=== PATIENT | female | born 1945 | race Caucasian/White ===

== ENCOUNTER 2020-07-01 13:22 | Outpatient (REF) | payer MEDICARE, OTHER, SELFPAY | END 2020-07-01 13:23 | disposition home or self-care (01) | LOC: HO.LAB 13:22 | PROVIDERS: Visit Provider Internal Medicine | DX: Z20.828 Contact with and (suspected) exposure to other viral communicable diseases (principal) | CPT/HCPCS: C9803; U0003 ==

== ENCOUNTER 2023-08-21 13:54 | Inpatient (IN) | payer MEDICARE, OTHER, SELFPAY ==
--- NOTE | ~2023-08-21 | CT_ITS ---
EXAMINATION: CT ANGIOGRAM HEAD CT ANGIOGRAM NECK CLINICAL INFORMATION: Reason for Exam stroke, right sided facial droop, slurred speech COMPARISON: None. TECHNIQUE: Test bolus sequences followed by intravenous administration 70 mL of Omnipaque 350. Helical imaging was performed in the axial plane from the aortic arch to the skull vertex. Delayed postcontrast imaging of the head was also performed. The data was processed at the electronic technologist's workstation for generation of MIP sequences. Angled MIPs and volume rendered reformatted images were also generated at an offline 3D workstation. Stenoses are assessed in accordance with Chen et al. Quantification of Carotid Stenosis on CT Angiography. AJR 2006. 27(1):13-19. [address] CT examination was performed using dose optimization techniques as appropriate, variously including the following: *Automated exposure control *Adjustment of mA and/or kV according to patient size (this includes techniques or standardized protocols for targeted exams where dose is matched to indication/reason for exam; i.e. extremities or head) *Use of iterative reconstruction technique DLP: 2015 mGy-cm FINDINGS: CT HEAD: Mild to moderate global cerebral volume loss. Patchy and confluent low density in the subcortical and periventricular white matter, deep mosley nuclei and external capsules is nonspecific but most suggestive of severe chronic microangiopathy. Please note the extent of white matter disease limits assessment for superimposed acute white matter process, including acute ischemia. 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 Age indeterminate possibly chronic infarct in the right posterior temporo-occipital lobe. Otherwise, no acute territorial loss of mosley-white differentiation. No territorial loss of mosley-white differentiation. No acute intracranial hemorrhage or extra-axial fluid collection. No mass lesion, significant mass effect, or herniation pattern. No pathologic intra-axial enhancement or regional oligemia. Lens replacements. Paranasal sinuses and mastoid air cells are well aerated. Osseous structures are intact. Bilateral TMJ osteoarthrosis. CTA HEAD: Please note venous contamination limits assessment particularly of the distal intracranial arterial vasculature. No hemodynamically significant stenosis or occlusion in the anterior or posterior circulation. Trace calcific plaque along the bilateral carotid siphons without associated stenosis. No aneurysms and no high flow vascular malformations. Timing of the contrast bolus allows assessment of the major dural venous sinuses, which all opacify normally CTA NECK: Classic 3 vessel branching pattern of the aortic arch. Origins of the great vessels are widely patent. The common carotid arteries are widely patent. Trace partially calcified atherosclerotic disease at the left carotid bifurcation was normal right carotid bifurcation. The internal carotid arteries are widely patent. Retropharyngeal course along the bilateral common carotid, right internal and left external carotid arteries. The right vertebral artery is dominant. The right vertebral artery origin and extracranial segment of the right vertebral artery are widely patent. 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 CT NECK: Prominant periapical lucency associated with the buccal roots of the right maxillary second premolar. Carious right maxillary canine tooth with ventral displacement of the tooth root beyond the anterior bony maxilla into the overlying premaxillary soft tissues; correlation with dental examination is advised. Additional scattered postroot canal changes and small periapical/periodontal lucencies. Bilateral torus mandibulari. Coarsely calcified bilateral palatine tonsilloliths. Medialization of the right aryepiglottic fold with prominence of the right piriform sinus and paramedian location of the posterior right true vocal cord with prominence of the right laryngeal ventricle. Diminutive thyroid gland. Multilevel cervical spondylosis. Diffuse osseous demineralization. Intraosseous hemangioma in the T1 and possibly of the T2 vertebral bodies. CT/CT angio head neck IMPRESSION: 1. Extensive white matter disease is nonspecific and may reflect sequela of severe chronic microangiopathy, which limits assessment for superimposed acute white matter process, including acute ischemia, which would be better evaluated on MRI. No acute intracranial hemorrhage. 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 Age indeterminate possibly chronic infarct in the right posterior temporo-occipital lobe. 2. Age-indeterminate occlusive of the nondominant left vertebral artery from its origin throughout the reconstituted V2 segment. 3. No acute arterial occlusion or hemodynamically significant stenosis within the cerebral vasculature. 4. Carious right maxillary canine tooth with ventral displacement of the tooth root beyond the anterior bony maxilla into the overlying premaxillary soft tissues; correlation with dental examination is advised. 5. Findings described above thickened correlate for right vocal cord paresis/paralysis. This critical result was discussed with Dr. Boucher at 5:36 PM on 08/21/2023 and it was ascertained that the content and urgency of the report was understood at the time of direct communication.
--- NOTE | ~2023-08-21 | MR_ITS ---
EXAMINATION: MR BRAIN WITHOUT CONTRAST CLINICAL INFORMATION: Facial droop COMPARISON: CTA 08/21/2023 TECHNIQUE: MRI of the brain was obtained using routine sequences without contrast. FINDINGS: Acute infarct in the left garcia radiata and additional smaller acute infarct in the right posterior garcia radiata. No significant mass effect or reperfusion hemorrhage. Moderate generalized parenchymal volume loss. Extensive patchy and confluent T2 FLAIR hyperintense foci in the subcortical and periventricular white matter, deep mosley nuclei, external capsules, anterior temporal lobes, and brainstem are and may reflect sequela of advanced chronic microangiopathy or small vessel vasculopathy, such as CADASIL given external capsule and anterior temporal lobe involvement. Advanced demyelinating disease or other white matter processes not excluded and can be correlated clinically. Gliosis along the callosal septal interface of the splenium of the corpus callosum. Chronic left PICA territory infarct and the left cerebellum and additional chronic lacunar infarct in the right cerebellum. No extra axial fluid collection, mass lesion, mass effect, or herniation pattern. Normal intracranial arterial and dural venous sinus flow voids. Normal appearance of the midline structures. Lens replacements. Trace ethmoid air cell mucosal thickening. 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 Small Tornwaldt cyst. Partially cervical spondylosis with advanced facet arthropathy MR/MR head/brain wo con IMPRESSION: 1. Acute infarct in the left garcia radiata and additional smaller acute infarct in the right posterior garcia radiata. No significant mass effect or reperfusion hemorrhage. 2. Moderate focal cerebral volume loss and extensive white matter signal abnormalities throughout the supratentorial and infratentorial compartments, which may reflect sequela of advanced chronic microangiopathy or small vessel vasculitis/vasculopathy, such as CADASIL given external capsule and anterior temporal lobe involvement. Advanced demyelinating disease or other white matter processes not excluded. 3. Chronic left PICA territory infarct and the left cerebellum and additional chronic lacunar infarct in the right cerebellum.
--- NOTE | 2023-08-21 13:57 | ED_ITS ---
HPI - General Adult General Chief complaint: Stroke Stated complaint: Slurring speech/facial droop Time Seen by Provider: 08/21/23 14:07 Related Data Home Medications Medication Instructions Recorded Confirmed bimatoprost 0.01 % eye drops 1 drp ophthalmic (eye) QPM 08/21/23 08/21/23 (Mahesh) diltiazem HCl 120 mg 120 mg PO DAILY 08/21/23 08/21/23 capsule,extended release 24 hr escitalopram oxalate 20 mg tablet 20 mg PO DAILY 08/21/23 08/21/23 levothyroxine 75 mcg tablet 75 mcg PO DAILY 08/21/23 08/21/23 lorazepam 0.5 mg tablet 0.5 mg PO DAILY PRN Anxiety 08/21/23 08/21/23 simvastatin 20 mg tablet 20 mg PO BEDTIME 08/21/23 08/21/23 vibegron 75 mg tablet (Gemtesa) 75 mg PO DAILY 08/21/23 08/21/23 Allergies Allergy/AdvReac Type Severity Reaction Status Date / Time No Known Allergies Allergy Verified 08/21/23 13:59 [facility] Past Medical History Medical History (Updated 08/21/23 @ 18:56 by Harvinder Perkins DO) Hypertension Social History Social History Advance Directives: No Advance Directives Information Provided: Yes Physical Exam ED Vital Signs: Vital Signs - 24 hr 08/21/23 13:59 08/21/23 14:52 08/21/23 15:11 Temperature 98 F 98.0 F Pulse Rate 60 67 61 Respiratory Rate 19 18 16 Blood Pressure 162/84 H 157/72 H 156/80 H Pulse Oximetry 94 95 95 Oxygen Delivery Method Room Air Room Air Room Air BMI result Body Mass Index 26.7 Course Course Course Narrative: RME performed by Samia Angelo PA-C. Patient is a 77 year old assigned female at presenting to the emergency department with right sided facial droop and word slurring since 08/16/2023. Detailed physical exam and review of systems are deferred to the supervisor underwriting clerks. Labs and imaging ordered. Charge nurse made aware of patient. Patient seen and dispositioned by Dr. Boucher. Please refer to her note from 08/21/2023. Medications Administered Generic Name Dose Route Start Last Admin Trade Name Freq PRN Reason Stop Dose Admin Enoxaparin Sodium 40 mg 08/21/23 18:45 08/21/23 19:34 Enoxaparin Sodium 40 Mg/0.4 Ml Syringe SUBCUT 40 mg Q24H MARIANA Administration Discontinued Medications Generic Name Dose Route Start Last Admin Trade Name Freq PRN Reason Stop Dose Admin Atorvastatin Calcium 40 mg 08/21/23 18:48 08/21/23 19:34 Atorvastatin Calcium 40 Mg Tablet PO 08/21/23 18:49 40 mg DAILY ONE Administration Iohexol 70 ml 08/21/23 16:45 08/21/23 16:46 Iohexol 350 Mg/Ml 100 Ml Infus..Btl IV 08/21/23 16:46 70 ml ONCE ONE Administration Medical Decision Making Lab Data 08/21/23 19:32 08/21/23 14:46 Labs: Lab Results 08/21/23 08/21/23 Range/Units 14:44 14:46 WBC 5.9 (4.8-10.8) X10*3/uL RBC 4.84 (4.20-5.50) X10*6/uL Hgb 13.9 (12.0-16.0) g/dl Hct 41.5 (37.0-47.0) % MCV 85.7 (80.0-98.0) fL MCH 28.7 (27.0-33.0) pg MCHC 33.5 (31.0-35.0) g/dl RDW 12.4 (11.0-16.0) % Plt Count 213 (160-400) X10*3/uL MPV 9.9 (9.4-12.3) fL Immature Gran % (Auto) 0.2 (0.0-0.4) % Neut % (Auto) 53.5 (45-73) % Lymph % (Auto) 30.4 (20-40) % [place] % (Auto) 12.6 H (2-11) % Eos % (Auto) 2.6 (0-4) % Baso % (Auto) 0.7 (0-2) % Lymph # (Auto) 1.8 (1.2-4.9) X10*3/uL [place] # (Auto) 0.7 (0.1-1.2) X10*3/uL Eos # (Auto) 0.2 (0.0-0.4) X10*3/uL Baso # (Auto) 0.0 (0.0-0.2) X10*3/uL Abs Immat Gran (auto) 0.01 (0.00-0.03) X10*3/uL Absolute Neuts (auto) 3.1 (2.0-8.3) x10*3/uL Absolute Nucleated RBC 0.000 (0.0-0.012) X10*3/uL Nucleated RBC % (auto) 0.0 (0.0-0.2) /100WBC Sodium 143 (135-145) mmol/L Potassium 4.3 (3.3-5.1) mmol/L Chloride 110 H (96-108) mmol/L Carbon Dioxide 26 (22-29) mmol/L Anion Gap 11 L (12-20) BUN 18 H (9-16) mg/dL Creatinine 1.19 (0.5-1.4) mg/dL Estim Creat Clear Calc 30.2 Estimated GFR 44 Random Glucose 92 (60-115) mg/dL Calcium 9.1 (8.4-10.2) mg/dL Magnesium 2.0 (1.6-2.6) mg/dL Total Bilirubin 0.5 (0.0-1.0) mg/dL AST 18 (5-31) U/L ALT 18 (0-31) U/L Alkaline Phosphatase 73 (39-117) U/L Troponin I High Sens < 2.7 (<3.5-17.0) ng/L Total Protein 6.6 (6.5-8.0) g/dL Albumin 4.0 (3.5-5.0) g/dL COVID-19 ([facility]) Negative (Negative) COVID-19 Clin Com See Note Discharge Plan Discharge Clinical Impression: Cerebrovascular accident Patient Disposition: Admitted As Inpatient
--- NOTE | 2023-08-21 13:58 | ECG_ITS ---
Test Reason : ?STRKE Blood Pressure : / mmHG Vent. Rate : 061 BPM Atrial Rate : 061 BPM P-R Int : 164 ms QRS Dur : 076 ms QT Int : 392 ms P-R-T Axes : 045 -28 096 degrees QTc Int : 394 ms Normal sinus rhythm Nonspecific ST and T wave abnormality Abnormal ECG When compared with ECG of 29-NOV-2005 19:09, Premature ventricular complexes are no longer Present Nonspecific T wave abnormality now evident in Lateral leads Referred By: Samia Angelo Electronically Signed By:Abdon Beaver
[2023-08-21 13:59] VITALS: BP 162/84; PULSE 60; RESP 19; TEMP 36.6; O2SAT 94; BMI 26.7
--- NOTE | 2023-08-21 14:16 | ED_ITS ---
HPI - Neuro Symptoms/Deficit General Chief Complaint: Stroke Stated Complaint: Slurring speech/facial droop Time Seen by Provider: 08/21/23 14:07 Source: patient Mode of arrival: ambulatory Limitations: no limitations History of Present Illness HPI Narrative: Patient comes to the emergency room complaining of 5 days of slurred speech and right-sided facial droop. Patient states that 5 days ago she went to see her psychiatrist, it was noted that patient had slight mouth droop and slurred speech. Patient states that she was told he might have been Gómez's palsy versus CVA. Patient went home. Patient states that 5 days ago also her brother noticed that the patient had slurred speech and the mouth drooping on the right was noticeable. Today patient presents with no improving of symptoms. Patient denies any weakness in upper or lower extremities Related Data Allergies Allergy/AdvReac Type Severity Reaction Status Date / Time No Known Allergies Allergy Verified 08/21/23 13:59 Review of Systems 2 Review of Systems: Constitutional : No Weight loss, No Fever, No Chills, No Night Sweats, No Fatigue, No Malaise ENT/Mouth : No Hearing loss, No Ear Pain, No Nasal Congestion, No Sinus Pain, No Hoarseness, No sore throat, No Rhinorrhea, No Swallowing Difficulty Eyes: No Eye Pain, No Swelling, No Redness, No Foreign Body, No Discharge, No Vision Changes Cardiovascular : No Chest Pain, No SOB, No Dyspnea on Exertion, No Orthopnea, No Edema, No Palpitations Respiratory : No Cough, No Sputum, No Wheezing, No Smoke Exposure, No Dyspnea Gastrointestinal : No Nausea, No Vomiting, No Diarrhea, No Constipation, No abdominal Pain, No Hematochezia, No Melena Genitourinary : no irregular bleeding, No Dysuria, No Urinary Frequency, No Hematuria, No Urinary Incontinence, No Urgency, No Flank Pain, No Urinary Flow Changes, No Hesitancy Musculoskeletal : No joint pain, No Myalgias, No Joint Swelling Skin : No Skin Lesions, No rash Neuro : Complaining right-sided mouth droop and slurred speech for 5 days, No Weakness, No Numbness, No Paresthesias, No Loss of Consciousness, Psych : No Anxiety/Panic, No Depression, No SI/HI/AH/VH, No Social Issues, Heme/Lymph: No Bruising, No Bleeding,No Lymphadenopathy Endocrine : No Polyuria, No Polydipsia, No Temperature Intolerance [facility] Past Medical History Medical History (Updated 08/21/23 @ 18:19 by Marjorie Boucher MD) Hypertension Social History Social History Advance Directives: No Advance Directives Information Provided: Yes Physical Exam 2 Vital Signs: Vital Signs: Last Vital Signs Temp 98.0 F 08/21/23 15:11 Pulse 61 08/21/23 15:11 Resp 16 08/21/23 15:11 BP 156/80 H 08/21/23 15:11 Pulse Ox 95 08/21/23 15:11 O2 Del Method Room Air 08/21/23 15:11 BMI result Body Mass Index 26.7 Const: Other: Appearance: Alert. Oriented X3. No acute distress. Eyes: Pupils equal, round and reactive to light. ENT: Pharynx normal. Neck: Normal inspection. Neck supple. No lymph nodes noted. No crepitus CVS: Normal heart rate and rhythm. Pulses normal. Normal S1 and S2 Respiratory: No respiratory distress. Breath sounds normal. No Wheezing. No rales Abdomen: Soft and nontender. No rigidity. No distention. Skin: Skin warm and dry. Normal skin color. Normal skin turgor. Extremities: No lower extremity edema. No Lacerations. No Rash Neuro: Oriented X 3. Mild right-sided mouth droop, mild slurred speech, 5/5 strength in upper and lower extremities bilaterally, good truncal stability and gait, No sensory deficit. Moving all extremities. No slurred speech. CN 2 through 12 grossly intact Psych: calm, cooperative, normal affect Course Course Course Narrative: -patient is outside of the window of treatment for TNK, patient has been symptomatic for 5 days. -labs and imaging pending. Medications Administered Discontinued Medications Generic Name Dose Route Start Last Admin Trade Name Freq PRN Reason Stop Dose Admin Iohexol 70 ml 08/21/23 16:45 08/21/23 16:46 Iohexol 350 Mg/Ml 100 Ml Infus..Btl IV 08/21/23 16:46 70 ml ONCE ONE Administration Medical Decision Making Medical Decision Making [facility] Narrative: -my interpretation of labs: Hematology within normal limits, chemistry within normal limits, troponin negative, serology negative for COVID. -my interpretation of CT scan of the brain: Chronic CVAs bilaterally -I discussed the patient with IRAIS Morales from the medicine team, patient being admitted. Differential Diagnosis Differential Diagnoses: The differential diagnosis associated with the presentation includes (TIA, CVA, Gómez's palsy) Admission/Observation Consideration of admission/observation: Escalation of care including admission/observation considered Consult Healthcare Provider Management of the patient was discussed with: Hospitalist Lab Data MDM Lab Attestation statement: I reviewed the patient's lab results. 08/21/23 14:46 08/21/23 14:46 Labs: Lab Results 08/21/23 08/21/23 Range/Units 14:44 14:46 WBC 5.9 (4.8-10.8) X10*3/uL RBC 4.84 (4.20-5.50) X10*6/uL Hgb 13.9 (12.0-16.0) g/dl Hct 41.5 (37.0-47.0) % MCV 85.7 (80.0-98.0) fL MCH 28.7 (27.0-33.0) pg MCHC 33.5 (31.0-35.0) g/dl RDW 12.4 (11.0-16.0) % Plt Count 213 (160-400) X10*3/uL MPV 9.9 (9.4-12.3) fL Immature Gran % (Auto) 0.2 (0.0-0.4) % Neut % (Auto) 53.5 (45-73) % Lymph % (Auto) 30.4 (20-40) % [place] % (Auto) 12.6 H (2-11) % Eos % (Auto) 2.6 (0-4) % Baso % (Auto) 0.7 (0-2) % Lymph # (Auto) 1.8 (1.2-4.9) X10*3/uL [place] # (Auto) 0.7 (0.1-1.2) X10*3/uL Eos # (Auto) 0.2 (0.0-0.4) X10*3/uL Baso # (Auto) 0.0 (0.0-0.2) X10*3/uL Abs Immat Gran (auto) 0.01 (0.00-0.03) X10*3/uL Absolute Neuts (auto) 3.1 (2.0-8.3) x10*3/uL Absolute Nucleated RBC 0.000 (0.0-0.012) X10*3/uL Nucleated RBC % (auto) 0.0 (0.0-0.2) /100WBC Sodium 143 (135-145) mmol/L Potassium 4.3 (3.3-5.1) mmol/L Chloride 110 H (96-108) mmol/L Carbon Dioxide 26 (22-29) mmol/L Anion Gap 11 L (12-20) BUN 18 H (9-16) mg/dL Creatinine 1.19 (0.5-1.4) mg/dL Estim Creat Clear Calc 30.2 Estimated GFR 44 Random Glucose 92 (60-115) mg/dL Calcium 9.1 (8.4-10.2) mg/dL Magnesium 2.0 (1.6-2.6) mg/dL Total Bilirubin 0.5 (0.0-1.0) mg/dL AST 18 (5-31) U/L ALT 18 (0-31) U/L Alkaline Phosphatase 73 (39-117) U/L Troponin I High Sens < 2.7 (<3.5-17.0) ng/L Total Protein 6.6 (6.5-8.0) g/dL Albumin 4.0 (3.5-5.0) g/dL COVID-19 ([facility]) Negative (Negative) COVID-19 Clin Com See Note Independent Interpretation I performed an independent interpretation of an: CT Scan Radiology Impression Discussion of test interpretation with radiology: I have reviewed the radiologist's reading. Radiologist Impression: CT HEAD: Mild to moderate global cerebral volume loss. Patchy and confluent low density in the subcortical and periventricular white matter, deep mosley nuclei and external capsules is nonspecific but most suggestive of severe chronic microangiopathy. Please note the extent of white matter disease limits assessment for superimposed acute white matter process, including acute ischemia. 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 Age indeterminate possibly chronic infarct in the right posterior temporo-occipital lobe. Otherwise, no acute territorial loss of mosley-white differentiation. No territorial loss of mosley-white differentiation. No acute intracranial hemorrhage or extra-axial fluid collection. No mass lesion, significant mass effect, or herniation pattern. No pathologic intra-axial enhancement or regional oligemia. Lens replacements. Paranasal sinuses and mastoid air cells are well aerated. Osseous structures are intact. Bilateral TMJ osteoarthrosis. CTA HEAD: Please note venous contamination limits assessment particularly of the distal intracranial arterial vasculature. No hemodynamically significant stenosis or occlusion in the anterior or posterior circulation. Trace calcific plaque along the bilateral carotid siphons without associated stenosis. No aneurysms and no high flow vascular malformations. Timing of the contrast bolus allows assessment of the major dural venous sinuses, which all opacify normally CTA NECK: Classic 3 vessel branching pattern of the aortic arch. Origins of the great vessels are widely patent. The common carotid arteries are widely patent. Trace partially calcified atherosclerotic disease at the left carotid bifurcation was normal right carotid bifurcation. The internal carotid arteries are widely patent. Retropharyngeal course along the bilateral common carotid, right internal and left external carotid arteries. The right vertebral artery is dominant. The right vertebral artery origin and extracranial segment of the right vertebral artery are widely patent. 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 CT NECK: Prominant periapical lucency associated with the buccal roots of the right maxillary second premolar. Carious right maxillary canine tooth with ventral displacement of the tooth root beyond the anterior bony maxilla into the overlying premaxillary soft tissues; correlation with dental examination is advised. Additional scattered postroot canal changes and small periapical/periodontal lucencies. Bilateral torus mandibulari. Coarsely calcified bilateral palatine tonsilloliths. Medialization of the right aryepiglottic fold with prominence of the right piriform sinus and paramedian location of the posterior right true vocal cord with prominence of the right laryngeal ventricle. Diminutive thyroid gland. Multilevel cervical spondylosis. Diffuse osseous demineralization. Intraosseous hemangioma in the T1 and possibly of the T2 vertebral bodies. CT/CT angio head neck IMPRESSION: 1. Extensive white matter disease is nonspecific and may reflect sequela of severe chronic microangiopathy, which limits assessment for superimposed acute white matter process, including acute ischemia, which would be better evaluated on MRI. No acute intracranial hemorrhage. 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 Age indeterminate possibly chronic infarct in the right posterior temporo-occipital lobe. 2. Age-indeterminate occlusive of the nondominant left vertebral artery from its origin throughout the reconstituted V2 segment. 3. No acute arterial occlusion or hemodynamically significant stenosis within the cerebral vasculature. 4. Carious right maxillary canine tooth with ventral displacement of the tooth root beyond the anterior bony maxilla into the overlying premaxillary soft tissues; correlation with dental examination is advised. 5. Findings described above thickened correlate for right vocal cord paresis/paralysis. NIH Stroke Scale Internal: Initial- Upon Arrival Level of Consciousness: Alert Level of Consciousness Questions: Answers both questions correctly Level of Consciousness Commands: Performs both tasks correctly Best Gaze: Normal Visual: No visual loss Facial Palsy: Minor paralyis Motor Arm (Right): No drift Motor Arm (Left): No drift Motor Leg (Right): No drift Motor Leg (Left): No drift Limb Ataxia: Absent Sensory: Normal Best Language: No aphasia Dysarthia: Mild to moderate dysarthria Extinction and Inattention: No abnormality Score: 2 Critical Care Time Critical Care Time Critical Care Time: Yes Total Critical Care Time: 60 Attestation: I have personally provided critical care time. Time includes review of lab data, radiology results, discussion with consultants, and monitoring for potential decompensation. Intervention performed as documented. Discharge Plan Discharge Clinical Impression: Cerebrovascular accident Patient Disposition: Admitted As Inpatient
[2023-08-21 14:50] LABS: MANUAL DIFF FLAG NO
[2023-08-21 14:52] VITALS: BP 157/72; PULSE 67; RESP 18; O2SAT 95
[2023-08-21 14:53] LABS: Basophils Percent Auto 0.7 % (0-2); Eosinophils Absolute Auto 0.2 X10*3/uL (0.0-0.4); Eosinophils Percent Auto 2.6 % (0-4); Hematocrit 41.5 % (37.0-47.0); Hemoglobin 13.9 g/dl (12.0-16.0); Imm Gran Abs Auto 0.01 X10*3/uL (0.00-0.03); Imm Gran Pct Auto 0.2 % (0.0-0.4); Lymphocytes Absolute Auto 1.8 X10*3/uL (1.2-4.9); Lymphocytes Percent Auto 30.4 % (20-40); Mean Corpuscular HGB Conc 33.5 g/dl (31.0-35.0); Mean Corpuscular Hemoglobin 28.7 pg (27.0-33.0); Mean Corpuscular Volume 85.7 fL (80.0-98.0); Mean Platelet Volume 9.9 fL (9.4-12.3); Monocytes Absolute Auto 0.7 X10*3/uL (0.1-1.2); Monocytes Percent Auto 12.6 % (2-11); Neutrophils Absolute Auto 3.1 x10*3/uL (2.0-8.3); Neutrophils Percent Auto 53.5 % (45-73); Platelet Count 213 X10*3/uL (160-400); Red Blood Count 4.84 X10*6/uL (4.20-5.50); Red Cell Distribution Width 12.4 % (11.0-16.0); White Blood Count 5.9 X10*3/uL (4.8-10.8)
[2023-08-21 15:03] LABS: COVID-19 Test Negative (Negative); IDNOW Serial# 152EDE1D
[2023-08-21 15:11] VITALS: BP 156/80; PULSE 61; RESP 16; TEMP 36.7; O2SAT 95
[2023-08-21 15:12] LABS: Alanine Aminotransferase 18 U/L (0-31); Alkaline Phosphatase 73 U/L (39-117); Anion Gap 11 (12-20); Aspartate Amino Transferase 18 U/L (5-31); Bilirubin Total 0.5 mg/dL (0.0-1.0); Blood Urea Nitrogen 18 mg/dL (9-16); Calcium 9.1 mg/dL (8.4-10.2); Carbon Dioxide 26 mmol/L (22-29); Chloride 110 mmol/L (96-108); Creatinine Clr Calc Pharmacy 30.2; Estimated Glomerular Filt Rate 44; Glucose Random 92 mg/dL (60-115); Potassium 4.3 mmol/L (3.3-5.1); Sodium 143 mmol/L (135-145); Total Protein 6.6 g/dL (6.5-8.0)
[2023-08-21 15:19] LABS: Troponin-I High Sensitivity < 2.7 ng/L (<3.5-17.0)
--- NOTE | 2023-08-21 16:11 | PC.NURSE ---
Met with patient. Pt reports that 5 days ago, she was at an MD appointment and was noted to have slight facial droop and garbled speech. Pt states appointment was at approximately 1100. Pt did not seek emergency evaluation and states her family also told her that her speech sounded garbled. (Appt was with psych provider, pt denies any new medication changes) Presented today for evaluation of the symptoms. Pt states that her speech has since improved. Mild facial droop still noted. Pt is awake, alert and oriented x 3. Skin warm and dry. Resp unlabored. Denies n/v. No c/o pain or headache. Does reports that she hasn't felt well for awhile . Pt reports I've had a cough since Laura and I feel tired . PERRLA, hand grasp equal bilaterally. Equal lower leg strength bilaterally. Swallow eval performed and patient passed without difficulty. Tongue Midline. No Palmar drift. Plan of care reinforced with patient along with Stroke/TIA education. Pt aware and agreeable to plan. Primary RN aware of above.
[2023-08-21] MEDS: iohexoL 350 MG/ML 100 ML INFUS..BTL 70 ML IV (16:46)
[2023-08-21 18:46] VITALS: BP 177/79; PULSE 59; RESP 16; TEMP 36.6; O2SAT 95
--- NOTE | 2023-08-21 18:50 | P.HPHOSP_ITS ---
History of Present Illness Date of Service: 08/21/23 Chief Complaint: slurred speech 77-year-old female presents with approximately 5 days of slurred speech and right facial droop. Otherwise she has no complaints of weakness or deficits. She states she is unaware of these deficits in a family member pointed them out. In the emergency room CTA of head and neck demonstrated chronic changes without acute infarct. Monitor is normal sinus rhythm. At this point in time she will be admitted for further workup of her symptoms Review of Systems 2 Review of Systems: Denies chest pain Denies shortness of breath Denies nausea vomiting diarrhea Denies fever chills [facility] Medical History (Updated 08/21/23 @ 18:56 by Harvinder Perkins DO) Hypertension Social History Advance Directives: No Advance Directives Information Provided: Yes Meds Allergies Allergy/AdvReac Type Severity Reaction Status Date / Time No Known Allergies Allergy Verified 08/21/23 13:59 Active Medications: Current Medications Acetaminophen (Acetaminophen 325 Mg Tablet) 650 mg PO Q6H PRN PRN Reason: Pain, Mild (Pain Scale 1-3) Aspirin (Aspirin Enteric Coated 81 Mg Tablet.) 81 mg PO DAILY [facility] Atorvastatin Calcium (Atorvastatin Calcium 40 Mg Tablet) 40 mg PO DAILY ONE Stop: 08/21/23 18:49 Enoxaparin Sodium (Enoxaparin Sodium 40 Mg/0.4 Ml Syringe) 40 mg SUBCUT Q24H [facility] Ondansetron HCl (Ondansetron Hcl 4 Mg/2 Ml Vial) 4 mg IVPUSH Q8H PRN PRN Reason: Nausea and Vomiting Sodium Chloride (0.9 % Sodium Chloride Flush 3 Ml Syringe) 3 ml IVFLUSH QSHIFT [facility] Physical Exam 2 Vital Signs and Narrative: Vital Signs: Last Vital Signs Temp 97.8 F 08/21/23 18:46 Pulse 59 08/21/23 18:46 Resp 16 08/21/23 18:46 BP 177/79 H 08/21/23 18:46 Pulse Ox 95 08/21/23 18:46 O2 Del Method Room Air 08/21/23 18:46 BMI result Body Mass Index 26.7 Const: Other: Awake alert oriented x3 no acute distress Neck: Other: No bruits appreciated Resp: Other: Clear to auscultation bilaterally no rales rhonchi or wheezes Cardio: Other: Regular rate and rhythm; no S4; positive S1-S2; no S3 murmurs rubs or gallops GI: Other: Soft nontender nondistended normoactive bowel sounds x4 quadrants Neuro: Other: Cranial nerves 2-12 grossly intact as tested save right facial droop. Motor is 5/5 all extremities. Sensation is intact. No pronator drift. Toes are downgoing. Cognition appropriate Extrem: Other: No edema bilaterally Results Labs 08/21/23 14:46 08/21/23 14:46 Labs: Laboratory Results - last 24 hr 08/21/23 08/21/23 14:44 14:46 MCV 85.7 MCH 28.7 MCHC 33.5 RDW 12.4 Plt Count 213 MPV 9.9 Immature Gran % (Auto) 0.2 Neut % (Auto) 53.5 Lymph % (Auto) 30.4 [place] % (Auto) 12.6 H Eos % (Auto) 2.6 Baso % (Auto) 0.7 Lymph # (Auto) 1.8 [place] # (Auto) 0.7 Eos # (Auto) 0.2 Baso # (Auto) 0.0 Abs Immat Gran (auto) 0.01 Absolute Neuts (auto) 3.1 Absolute Nucleated RBC 0.000 Nucleated RBC % (auto) 0.0 Anion Gap 11 L Estim Creat Clear Calc 30.2 Estimated GFR 44 Random Glucose 92 Calcium 9.1 Magnesium 2.0 Total Bilirubin 0.5 AST 18 ALT 18 Alkaline Phosphatase 73 Total Protein 6.6 Albumin 4.0 COVID-19 ([facility]) Negative COVID-19 Clin Com See Note Imaging Radiologist's Impressions: Impressions Head/Neck CTA 08/21/23 17:20 IMPRESSION: 1. Extensive white matter disease is nonspecific and may reflect sequela of severe chronic microangiopathy, which limits assessment for superimposed acute white matter process, including acute ischemia, which would be better evaluated on MRI. No acute intracranial hemorrhage. 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 Age indeterminate possibly chronic infarct in the right posterior temporo-occipital lobe. 2. Age-indeterminate occlusive of the nondominant left vertebral artery from its origin throughout the reconstituted V2 segment. 3. No acute arterial occlusion or hemodynamically significant stenosis within the cerebral vasculature. 4. Carious right maxillary canine tooth with ventral displacement of the tooth root beyond the anterior bony maxilla into the overlying premaxillary soft tissues; correlation with dental examination is advised. 5. Findings described above thickened correlate for right vocal cord paresis/paralysis. This critical result was discussed with Dr. Boucher at 5:36 PM on 08/21/2023 and it was ascertained that the content and urgency of the report was understood at the time of direct communication. Assessment and Plan (1) Dysarthria: Status: Acute Plan 77-year-old female with likely history of hypertension presents with 5 days of right facial asymmetry along with slurred speech. CTA of head and neck demonstrates chronic changes can not rule out acute events. 1. Dysarthria with right facial asymmetry -admit to telemetry -atorvastatin 40 mg daily/aspirin 81 mg daily -MRI in a.m. -consider echo based on telemetry results overnight 2. Hypertension -await med reconciliation as patient unaware of her meds -adjust as indicated Full code Lovenox Will require overnight observation for cause of dysarthria/ right facial symmetry with MRI in a.m/telemetry overnight.. This can not be achieved a lesser acute setting Quality Stroke Does the patient have a stroke diagnosis?: Yes Reason for No Anti-thrombotic by Day Two: N/A - Med Ordered VTE Prior VTE?: No VTE Risk Level:: Medical - moderate - high VTE Device Contraindication: Treatment Not Indicated VTE Drug Contraindication: N/A - Med Ordered
--- NOTE | 2023-08-21 19:11 | MHC.EDTECH ---
Walked patient to bathroom
--- NOTE | 2023-08-21 19:29 | PC.NURSE ---
This RN took over pt care @ 1900. MRI sheet filled out with pt. Pts family at bedside. Lab currently with pt. Plan of care ongoing.
[2023-08-21] MEDS: Atorvastatin Calcium 40 MG TABLET PO (19:34)
[2023-08-21] MEDS: Enoxaparin Sodium 40 MG/0.4 ML SYRINGE SUBCUT (19:34)
--- NOTE | 2023-08-21 19:37 | PC.NURSE ---
Pt ca&ox3, no signs of distress. Pt medicated per sep. family no longer at bedside. Pharmacy with pt. Plan of care ongoing.
--- NOTE | 2023-08-21 19:47 | PHA.MEDREC ---
Pharmacy Consult ? Medication Reconciliation Pharmacy has completed the medication reconciliation. Confirmed medications with patient and through claim history. Patient states she takes OTC meds Vitamin C,Vitamin D, Multivitamin, tumeric, and Fish oil but does not know the strengths. Luzmaria Eldridge CPhT
[2023-08-21 19:56] LABS: MANUAL DIFF FLAG NO
[2023-08-21 20:05] LABS: Basophils Absolute Auto 0.1 X10*3/uL (0.0-0.2); Basophils Percent Auto 0.9 % (0-2); Eosinophils Absolute Auto 0.2 X10*3/uL (0.0-0.4); Eosinophils Percent Auto 3.3 % (0-4); Hematocrit 41.4 % (37.0-47.0); Hemoglobin 14.2 g/dl (12.0-16.0); Imm Gran Abs Auto 0.01 X10*3/uL (0.00-0.03); Imm Gran Pct Auto 0.2 % (0.0-0.4); Lymphocytes Absolute Auto 2.3 X10*3/uL (1.2-4.9); Lymphocytes Percent Auto 35.8 % (20-40); Mean Corpuscular HGB Conc 34.3 g/dl (31.0-35.0); Mean Corpuscular Hemoglobin 29.6 pg (27.0-33.0); Mean Corpuscular Volume 86.3 fL (80.0-98.0); Mean Platelet Volume 10.3 fL (9.4-12.3); Monocytes Absolute Auto 0.6 X10*3/uL (0.1-1.2); Monocytes Percent Auto 9.3 % (2-11); Neutrophils Absolute Auto 3.2 x10*3/uL (2.0-8.3); Neutrophils Percent Auto 50.5 % (45-73); Platelet Count 208 X10*3/uL (160-400); Red Cell Distribution Width 12.3 % (11.0-16.0); White Blood Count 6.4 X10*3/uL (4.8-10.8)
[2023-08-21 20:14] LABS: INTERNATIONAL NORM RATIO 0.9 (0.9-1.1); Prothrombin Time 11.3 SEC (11.1-13.3)
[2023-08-21 20:17] LABS: Partial Thromboplastin Time 28.5 SEC (26.0-36.4)
[2023-08-21 20:18] LABS: Anion Gap 13 (12-20); Blood Urea Nitrogen 17 mg/dL (9-16); Calcium 9.2 mg/dL (8.4-10.2); Carbon Dioxide 22 mmol/L (22-29); Chloride 109 mmol/L (96-108); Creatinine Clr Calc Pharmacy 34.5; Estimated Glomerular Filt Rate 51; Glucose Random 80 mg/dL (60-115); Potassium 3.9 mmol/L (3.3-5.1); Sodium 140 mmol/L (135-145)
[2023-08-21 20:25] LABS: Troponin-I High Sensitivity < 2.7 ng/L (<3.5-17.0)
[2023-08-21 21:25] LABS: Stroke Lab Use COMPLETE
[2023-08-21 23:19] VITALS: BP 202/97; PULSE 64; RESP 17; TEMP 36.8; O2SAT 95
[2023-08-21 23:20] VITALS: BP 199/90; PULSE 63; RESP 17; O2SAT 94
[2023-08-22] VITALS (10 sets, daily range): BP systolic 134–196; BP diastolic 60–93; PULSE 51–65; RESP 15–18; TEMP 36.4–36.9; O2SAT 94–95
[2023-08-22] MEDS: LORazepam 0.5 MG TABLET PO ×2 (00:25→21:16)
[2023-08-22] MEDS: dilTIAZem HCL CD 120 MG CAP.ER.DEG PO (00:25)
[2023-08-22] MEDS: 0.9 % Sodium Chloride Flush 3 ML SYRINGE IVFLUSH ×4 (00:26→21:16)
[2023-08-22] MEDS: Acetaminophen 325 MG TABLET 650 MG PO ×3 (02:22→21:17)
[2023-08-22 03:27] LABS: Appearance Urine Clear; Color Urine Yellow; Glucose Urine UA Negative (Negative); Leukocyte Esterase Urine Trace (Negative); Nitrite Urine Negative (Negative); Specific Gravity - Urine 1.015 (1.005-1.025); UMIC TRIGGER UACC YES; Urine Blood Negative (Negative); Urine Ketones Negative (Negative); Urine Protein Negative (Neg-Trace)
[2023-08-22 03:29] LABS: Bacteria Urine None Seen (None Seen); Hyaline Casts Urine 0-2 /LPF (0-2); RBC Urine 0-2 /HPF (0-2); Squamous Epithelial Cell Urine 0-2 /HPF (0-2); WBC Urine 0-5 /HPF (0-5)
[2023-08-22] MEDS: Levothyroxine Sodium 75 MCG TABLET PO (06:07)
[2023-08-22 06:51] LABS: Hematocrit 42.1 % (37.0-47.0); Hemoglobin 14.2 g/dl (12.0-16.0); Mean Corpuscular HGB Conc 33.7 g/dl (31.0-35.0); Mean Corpuscular Volume 86.1 fL (80.0-98.0); Mean Platelet Volume 10.5 fL (9.4-12.3); Platelet Count 220 X10*3/uL (160-400); Red Blood Count 4.89 X10*6/uL (4.20-5.50); Red Cell Distribution Width 12.2 % (11.0-16.0); White Blood Count 5.7 X10*3/uL (4.8-10.8)
[2023-08-22 07:06] LABS: Alanine Aminotransferase 18 U/L (0-31); Alkaline Phosphatase 72 U/L (39-117); Anion Gap 13 (12-20); Aspartate Amino Transferase 18 U/L (5-31); Bilirubin Total 0.7 mg/dL (0.0-1.0); Blood Urea Nitrogen 13 mg/dL (9-16); Calcium 9.1 mg/dL (8.4-10.2); Carbon Dioxide 24 mmol/L (22-29); Chloride 109 mmol/L (96-108); Creatinine Clr Calc Pharmacy 33.8; Estimated Glomerular Filt Rate 50; Glucose Random 80 mg/dL (60-115); Potassium 3.6 mmol/L (3.3-5.1); Sodium 142 mmol/L (135-145); Total Protein 6.5 g/dL (6.5-8.0)
[2023-08-22] MEDS: Escitalopram Oxalate 20 MG TABLET PO (08:47)
[2023-08-22] MEDS: Aspirin Enteric Coated 81 MG TABLET.DR PO (08:47)
--- NOTE | 2023-08-22 09:42 | MHC.CM.PN ---
Addendum entered by Julieta Tubbs RN 08/22/23 11:37: CM UNABLE TO LOCATE COPY OF HCP AT [facility]/PROVIDERS, CM WILL COMPLETE A NEW ONE IF PT RECOMMENDED ACUTE/STR. Addendum entered by Julieta Tubbs RN 08/22/23 10:41: PT NOW INPT, IMM 08/22/23 DELIVERED TO BEDSIDE. Original Note: SOARES 08/22/23, EMR REVIEWED, PT ADMITTED W/RIGHT FACIAL DROOP, CM MET W/PT WHO IS A&O, PT REPORTS SHE LIVES W/HER DOG, IS FULLY INDEPENDENT W/ALL CARE, DENIES USE OF DME/SERVICES, PT REQUESTING CM CONTACT HER SON/HCP SUSIE FOR A COPY OF HER HCP, CM CONTACTED SUSIE AT 9:43AM AND SUSIE REPORTS HE DOES NOT HAVE A COPY AND DOES NOT KNOW WHERE PT'S DOCUMENTS ARE. PT VERIFIES HER PCP JORJE CHILDS, COVID VACC X4 AND CM WILL CONTACT [facility] FOR COPY OF HCP.
--- NOTE | 2023-08-22 13:56 | P.PNIM_ITS ---
Subjective Subjective Date of Service: 08/22/23 Interval History: No new issues overnight. Speech essentially unchanged Review of Systems Denies chest pain Denies shortness of breath Denies nausea vomiting diarrhea Denies fever chills Physical Exam 2 Vital Signs: Vital Signs: Last Vital Signs Temp 98.2 F 08/22/23 11:18 Pulse 56 08/22/23 11:18 Resp 16 08/22/23 11:18 BP 156/75 H 08/22/23 11:18 Pulse Ox 95 08/22/23 11:18 O2 Del Method Room Air 08/22/23 11:18 BMI result Body Mass Index 26.7 Const: Other: Awake alert oriented x3 no acute distress Neck: Other: No bruits appreciated Resp: Other: Clear to auscultation bilaterally no rales rhonchi or wheezes Cardio: Other: Regular rate and rhythm; no S4; positive S1-S2; no S3 murmurs rubs or gallops GI: Other: Soft nontender nondistended normoactive bowel sounds x4 quadrants Neuro: Other: Cranial nerves 2-12 grossly intact as tested save right facial droop. Motor is 5/5 all extremities. Sensation is intact. No pronator drift. Toes are downgoing. Cognition appropriate Extrem: Other: No edema bilaterally Objective Data Active Medications Acetaminophen (Acetaminophen 325 Mg Tablet) 650 mg PO Q6H PRN PRN Reason: Pain, Mild (Pain Scale 1-3) Last Admin: 08/22/23 13:17 Dose: 650 mg Documented By: ALEXANDER Aspirin (Aspirin Enteric Coated 81 Mg Tablet.Dr) 81 mg PO DAILY [facility] Last Admin: 08/22/23 08:47 Dose: 81 mg Documented By: ALEXANDER Diltiazem HCl (Diltiazem Hcl Cd 120 Mg Cap.Er.Deg) 120 mg PO DAILY [facility]; Protocol Last Admin: 08/22/23 00:25 Dose: 120 mg Documented By: HAYLEY Enoxaparin Sodium (Enoxaparin Sodium 40 Mg/0.4 Ml Syringe) 40 mg SUBCUT Q24H [facility] Last Admin: 08/21/23 19:34 Dose: 40 mg Documented By: HAYLEY Escitalopram Oxalate (Escitalopram Oxalate 20 Mg Tablet) 20 mg PO DAILY [facility] Last Admin: 08/22/23 08:47 Dose: 20 mg Documented By: ALEXANDER Latanoprost (Latanoprost 0.005 % Ophth Kaur 2.5 Ml Drops) 1 drop EYE-BOTH BEDTIME [facility] Levothyroxine Sodium (Levothyroxine Sodium 75 Mcg Tablet) 75 mcg PO DAILY@0630 [facility] Last Admin: 08/22/23 06:07 Dose: 75 mcg Documented By: EVAN Lorazepam (Lorazepam 0.5 Mg Tablet) 0.5 mg PO DAILY PRN PRN Reason: Anxiety Last Admin: 08/22/23 00:25 Dose: 0.5 mg Documented By: HAYLEY Non-Formulary Medication (Vibegron [Gemtesa]) 75 mg PO DAILY [facility] Ondansetron HCl (Ondansetron Hcl 4 Mg/2 Ml Vial) 4 mg IVPUSH Q8H PRN PRN Reason: Nausea and Vomiting Sodium Chloride (0.9 % Sodium Chloride Flush 3 Ml Syringe) 3 ml IVFLUSH QSHIFT [facility] Last Admin: 08/22/23 08:47 Dose: 3 ml Documented By: ALEXANDER Labs 08/22/23 06:02 08/22/23 06:02 Labs: Laboratory Results - last 24 hr 08/21/23 08/21/23 08/21/23 14:44 14:46 19:32 MCV 85.7 86.3 MCH 28.7 29.6 MCHC 33.5 34.3 RDW 12.4 12.3 Plt Count 213 208 MPV 9.9 10.3 Immature Gran % (Auto) 0.2 0.2 Neut % (Auto) 53.5 50.5 Lymph % (Auto) 30.4 35.8 [place] % (Auto) 12.6 H 9.3 Eos % (Auto) 2.6 3.3 Baso % (Auto) 0.7 0.9 Lymph # (Auto) 1.8 2.3 [place] # (Auto) 0.7 0.6 Eos # (Auto) 0.2 0.2 Baso # (Auto) 0.0 0.1 Abs Immat Gran (auto) 0.01 0.01 Absolute Neuts (auto) 3.1 3.2 Absolute Nucleated RBC 0.000 0.000 Nucleated RBC % (auto) 0.0 0.0 PT 11.3 INR 0.9 APTT 28.5 Anion Gap 11 L 13 Estim Creat Clear Calc 30.2 34.5 Estimated GFR 44 51 Random Glucose 92 80 Calcium 9.1 9.2 Magnesium 2.0 Total Bilirubin 0.5 AST 18 ALT 18 Alkaline Phosphatase 73 Total Creatine Kinase 48 Total Protein 6.6 Albumin 4.0 Urine Color Urine Appearance Urine pH Ur Specific [place] Urine Protein Urine Glucose (UA) Urine Ketones Urine Blood Urine Nitrite Ur Leukocyte Esterase Urine RBC Urine WBC Ur Squamous Epith Cells Urine Bacteria Hyaline Casts COVID-19 ([facility]) Negative COVID-19 Clin Com See Note 08/22/23 08/22/23 03:07 06:02 MCV 86.1 MCH 29.0 MCHC 33.7 RDW 12.2 Plt Count 220 MPV 10.5 Immature Gran % (Auto) Neut % (Auto) Lymph % (Auto) [place] % (Auto) Eos % (Auto) Baso % (Auto) Lymph # (Auto) [place] # (Auto) Eos # (Auto) Baso # (Auto) Abs Immat Gran (auto) Absolute Neuts (auto) Absolute Nucleated RBC 0.000 Nucleated RBC % (auto) 0.0 PT INR APTT Anion Gap 13 Estim Creat Clear Calc 33.8 Estimated GFR 50 Random Glucose 80 Calcium 9.1 Magnesium Total Bilirubin 0.7 AST 18 ALT 18 Alkaline Phosphatase 72 Total Creatine Kinase Total Protein 6.5 Albumin 4.0 Urine Color Yellow Urine Appearance Clear Urine pH 7.0 Ur Specific [place] 1.015 Urine Protein Negative Urine Glucose (UA) Negative Urine Ketones Negative Urine Blood Negative Urine Nitrite Negative Ur Leukocyte Esterase Trace H Urine RBC 0-2 Urine WBC 0-5 Ur Squamous Epith Cells 0-2 Urine Bacteria None Seen Hyaline Casts 0-2 COVID-19 ([facility]) COVID-19 Clin Com Assessment and Plan (1) Cerebrovascular accident: Status: Acute (2) Hypertension: Status: Acute Plan 77-year-old female with likely history of hypertension presents with 5 days of right facial asymmetry along with slurred speech. CTA of head and neck demonstrates chronic changes can not rule out acute events. 1. CVA with right facial asymmetry -atorvastatin 40 mg daily/aspirin 81 mg daily -MRI confirmed stroke -neuro consult/PT eval -past nursing bedside swallow; eating without issue 2. Hypertension -await med reconciliation as patient unaware of her meds -adjust as indicated Full code Lovenox Will require overnight observation for cause of dysarthria/ right facial symmetry with MRI in a.m/telemetry overnight.. This can not be achieved a lesser acute setting Quality Stroke Does the patient have a stroke diagnosis?: Yes Reason for No Anti-thrombotic by Day Two: N/A - Med Ordered VTE Prior VTE?: No VTE Risk Level:: Medical - moderate - high VTE Device Contraindication: Treatment Not Indicated VTE Drug Contraindication: N/A - Med Ordered
--- NOTE | 2023-08-22 18:15 | P.CNNE_ITS ---
History of Present Illness Data of Consult Service Date: 08/22/23 Primary Care Provider: Yany Williamson MD [facility] Reason for consult: Stroke with right facial droop This is a 77-year-old female with HLD, HBP but no previous stroke Hx drove herself to the ER as recommended by PCP 2 days after her therapist and then her brother noted drooping of right angle of mouth. She was unaware of it and did not have any limb weakness. She thought her speech was fine. Brother thought her speech was slurred at times along with right facial droop. Otherwise she has no complaints of weakness or deficits. She states she is unaware of these deficits in a family member pointed them out. In the emergency room CTA of head and neck demonstrated chronic changes without acute infarct with old left vertebtral occlusion. MRIShowed an acute infarct in the garcia radiate to on the left and a smaller acute infarct in the right garcia radiata to in the parietal region. She also has extensive white matter disease in both hemispheres diffusely including brainstem and old inferior left cerebellar infarct with encephalomalacia Review of Systems 2 Review of Systems: Denies chest pain Denies shortness of breath Denies nausea vomiting diarrhea Denies fever chills PMFSH Past Medical History Medical History (Updated 08/21/23 @ 18:56 by Harvinder Perkins DO) Hypertension Social History Social History Household Members: None Household Members Other:: dog Housing: House Do you presently have visiting nurse or other home services: No Patient Tobacco Use Status: Former Tobacco user Use of substances other than those prescribed or required for medical reasons: No Substance Use Type: Marijuana Currently Displaying Signs/Symptoms of Drug Intoxication Withdrawal: No Have you been hit, kicked, punched, or otherwise hurt by someone within the past year? If so, by whom?: No Is there a partner from a previous relationship who is making you feel unsafe now?: No Are you made to feel afraid or neglected: No Advance Directives: No Advance Directives Information Provided: Yes Do you have thoughts of harming others: None Do you have a plan to hurt others: No Plan Patient : No service: No Meds Allergies Allergy/AdvReac Type Severity Reaction Status Date / Time No Known Allergies Allergy Verified 08/21/23 13:59 Active Medications: Current Medications Acetaminophen (Acetaminophen 325 Mg Tablet) 650 mg PO Q6H PRN PRN Reason: Pain, Mild (Pain Scale 1-3) Last Admin: 08/22/23 13:17 Dose: 650 mg Aspirin (Aspirin Enteric Coated 81 Mg Tablet.Dr) 81 mg PO DAILY [facility] Last Admin: 08/22/23 08:47 Dose: 81 mg Diltiazem HCl (Diltiazem Hcl Cd 120 Mg Cap.Er.Deg) 120 mg PO DAILY [facility]; Protocol Last Admin: 08/22/23 00:25 Dose: 120 mg Enoxaparin Sodium (Enoxaparin Sodium 40 Mg/0.4 Ml Syringe) 40 mg SUBCUT Q24H [facility] Last Admin: 08/21/23 19:34 Dose: 40 mg Escitalopram Oxalate (Escitalopram Oxalate 20 Mg Tablet) 20 mg PO DAILY [facility] Last Admin: 08/22/23 08:47 Dose: 20 mg Latanoprost (Latanoprost 0.005 % Ophth Kaur 2.5 Ml Drops) 1 drop EYE-BOTH BEDTIME [facility] Levothyroxine Sodium (Levothyroxine Sodium 75 Mcg Tablet) 75 mcg PO DAILY@0630 [facility] Last Admin: 08/22/23 06:07 Dose: 75 mcg Lorazepam (Lorazepam 0.5 Mg Tablet) 0.5 mg PO DAILY PRN PRN Reason: Anxiety Last Admin: 08/22/23 00:25 Dose: 0.5 mg Non-Formulary Medication (Vibegron [Gemtesa]) 75 mg PO DAILY [facility] Ondansetron HCl (Ondansetron Hcl 4 Mg/2 Ml Vial) 4 mg IVPUSH Q8H PRN PRN Reason: Nausea and Vomiting Sodium Chloride (0.9 % Sodium Chloride Flush 3 Ml Syringe) 3 ml IVFLUSH QSHIFT [facility] Last Admin: 08/22/23 08:47 Dose: 3 ml Home Medications Medication Instructions Recorded Confirmed Last Taken Type bimatoprost 0.01 % eye drops 1 drp ophthalmic (eye) QPM 08/21/23 08/21/23 Unknown History (Mahesh) diltiazem HCl 120 mg 120 mg PO DAILY 08/21/23 08/21/23 Unknown History capsule,extended release 24 hr escitalopram oxalate 20 mg tablet 20 mg PO DAILY 08/21/23 08/21/23 Unknown History levothyroxine 75 mcg tablet 75 mcg PO DAILY 08/21/23 08/21/23 Unknown History lorazepam 0.5 mg tablet 0.5 mg PO DAILY PRN Anxiety 08/21/23 08/21/23 Unknown History simvastatin 20 mg tablet 20 mg PO BEDTIME 08/21/23 08/21/23 Unknown History vibegron 75 mg tablet (Gemtesa) 75 mg PO DAILY 08/21/23 08/21/23 Unknown History Physical Exam 2 Vital Signs: Vital Signs: Last Vital Signs Temp 98.2 F 08/22/23 15:48 Pulse 55 08/22/23 15:48 Resp 18 08/22/23 15:48 BP 169/72 H 08/22/23 15:48 Pulse Ox 95 08/22/23 15:48 O2 Del Method Room Air 08/22/23 15:48 BMI result Body Mass Index 26.7 Const: Other: Awake alert oriented x3 no acute distress Neck: Other: No bruits appreciated Resp: Other: Clear to auscultation bilaterally no rales rhonchi or wheezes Cardio: Other: Regular rate and rhythm; no S4; positive S1-S2; no S3 murmurs rubs or gallops GI: Other: Soft nontender nondistended normoactive bowel sounds x4 quadrants Neuro: Other: Cranial nerves 2-12 Are normal except for droop of the right angle of the mouth. Muscle tone and strength are normal in all 4 extremities 5/5 all extremities. Sensation is intact. No pronator drift. Toes are downgoing. Cognition appropriate. Gait and coordination are normal. Extrem: Other: No edema bilaterally Results Labs 08/22/23 06:02 08/22/23 06:02 Labs: Short CBC 08/21/23 08/22/23 Range/Units 19:32 06:02 WBC 6.4 5.7 (4.8-10.8) X10*3/uL Hgb 14.2 14.2 (12.0-16.0) g/dl Hct 41.4 42.1 (37.0-47.0) % Plt Count 208 220 (160-400) X10*3/uL BMP 08/21/23 08/22/23 19:32 06:02 Sodium 140 142 Potassium 3.9 3.6 Chloride 109 H 109 H Carbon Dioxide 22 24 BUN 17 H 13 Creatinine 1.04 1.06 Calcium 9.2 9.1 Cardiac Enzymes 08/21/23 Range/Units 19:32 Total Creatine Kinase 48 (26-140) U/L Liver Function 08/22/23 Range/Units 06:02 Total Bilirubin 0.7 (0.0-1.0) mg/dL AST 18 (5-31) U/L ALT 18 (0-31) U/L Alkaline Phosphatase 72 (39-117) U/L Albumin 4.0 (3.5-5.0) g/dL Urine 08/22/23 Range/Units 03:07 Urine Color Yellow Urine Appearance Clear Urine pH 7.0 (5.0-9.0) Ur Specific [place] 1.015 (1.005-1.025) Urine Protein Negative (Neg-Trace) mg/dL Urine Glucose (UA) Negative (Negative) mg/dL Assessment and Plan (1) Cerebrovascular accident: Status: Acute Acute Cerebral microvascular infarcts in the left garcia radiata and a smaller one in the right garcia radiata. It is related to small vessel disease. There is chronic superimposed extensive diffuse white matter cerebrovascular disease including brainstem and an old inferior cerebellar infarct. 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 Control of blood pressure. Continue statins. Aspirin 81 mg a day. The patient is expected to recover within the next couple of weeks. Outpatient followup in 3-4 weeks. No physical therapy Or speech therapy is necessary (2) Hypertension: Status: Acute Plan 77-year-old female with likely history of hypertension presents with 5 days of right facial asymmetry along with slurred speech. CTA of head and neck demonstrates chronic changes can not rule out acute events. 1. CVA with right facial asymmetry -atorvastatin 40 mg daily/aspirin 81 mg daily -MRI confirmed stroke -neuro consult/PT eval -past nursing bedside swallow; eating without issue 2. Hypertension -await med reconciliation as patient unaware of her meds -adjust as indicated Full code Lovenox Will require overnight observation for cause of dysarthria/ right facial symmetry with MRI in a.m/telemetry overnight.. This can not be achieved a lesser acute setting Procedures Date of Service Date of Service: 08/22/23
[2023-08-22] MEDS: Enoxaparin Sodium 40 MG/0.4 ML SYRINGE SUBCUT (18:29)
[2023-08-22] MEDS: Latanoprost 0.005 % Ophth Sol 2.5 ML DROPS 1 DROP EYE-BOTH (21:16)
[2023-08-22] MEDS: Atorvastatin Calcium 10 MG TABLET 20 MG PO (22:45)
--- NOTE | 2023-08-22 23:00 | PC.NURSE ---
Assumed care of patient 19:15 this evening. A&Ox4. Here for CVA. No neuro deficits noted on assessment. Speech is clear, smile symmertical, tongue is midline, +perrl 3mm brisk with conjugate gaze, strength is equal in all four extremities. Denies headache, vision changes, dizziness, parasthesias. 23:00 BP noted to be elevated 173/75, HR 56. Pt denied symptoms and denied pain. BP correlates on BUE. +radial and pp, +cms. Covering Dr. Mich Barnhart notified. Written orders to recheck BP in two hours. PATIENT REPRESENTATIVE made aware of plan. Statin ordered and given this evening per MD recs. Plan on care continues. Safety measures in place. Will continue to monitor for remainder of jingle writer's scheduled care.
[2023-08-23 01:14] VITALS: BP 182/93; PULSE 51; RESP 18; TEMP 36.3; O2SAT 95
[2023-08-23] MEDS: hydrALAZINE HCl 25 MG TABLET PO ×2 (01:47→08:16)
[2023-08-23 03:11] VITALS: BP 132/67; PULSE 54; RESP 18; TEMP 37; O2SAT 98
--- NOTE | 2023-08-23 03:20 | PC.NURSE ---
01:00 BP recheck done per Dr. Mich Barnhart request; Pt's BP remained high, 180's/90's. Pt remained asymptomatic. MD order for po hydralazine, given with +effect, BP now 132/67 on scheduled vitals, continues sinus luis 50's. Pt resting in bed, states she is comfortable and would like to go back to sleep. Will continue to monitor for remainder of securities underwriter's care.
[2023-08-23] MEDS: Levothyroxine Sodium 75 MCG TABLET PO (05:49)
--- NOTE | 2023-08-23 07:00 | CA_ITS ---
Transthoracic Echocardiogram Patient (Last, First, Middle): Gisela Agrawal J Gender: Female Date of : 1945 Age: 77 Procedure Date: 08/23/2023 Procedure Type: Transthoracic Echocardiogram Location: OP Height: 149.86 cm Weight: 59.88 kg BSA: 1.55 m2 Heart Rate: bpm BP: 132 / 67 mmHg Bone Char Operator: SANDIE Referring MD: Harvinder Perkins DO Joiner Helper: Wade Palafox MD Symptoms: cva Study Quality: Adequate ECG Rhythm: Sinus Conclusions: - 1. Normal LV ejection fraction of 60 65% with mild LVH with grade 1 diastolic dysfunction 2. Normal cardiac valvular Doppler 3. No gross pericardial effusion Findings Left Ventricle Normal left ventricular size and systolic function. There is mildly increased left ventricular wall thickness. The visually estimated ejection fraction is between 60-65%. Spectral Doppler is indicative of an impaired relaxation filling pattern. E/E prime ratio is <8, consistent with normal filling pressures. Evidence suggests grade I (mild) diastolic dysfunction. Peak GLS is -15.8%, which is mildly reduced. Right Ventricle Normal right ventricular cavity size and systolic function. Atria Both atria are normal in size. There is lipomatous hypertrophy of the interatrial septum. Interatrial shunt cannot be excluded. Aortic Valve The aortic valve structure and function is likely normal. There is no aortic valve stenosis. There is no aortic valve regurgitation. Mitral Valve There is mild anterior and posterior mitral leaflet thickening. There is trace mitral valve regurgitation. There is no mitral valve stenosis. Pulmonic Valve The pulmonic valve was not well visualized. Tricuspid Valve Likely normal tricuspid valve structure and function. Tricuspid regurgitation envelope is inadequate for calculation of right ventricular systolic pressure. Normal right atrial pressure. Great Vessels All visible segments of the aorta are normal in size. The pulmonary artery was not well visualized. There is no dilatation of the ascending aorta measuring 3.30 cm. Venous The inferior vena cava is normal in size and collapses greater than 50% with inspiration. Pericardium/Pleural There is no evidence of pericardial effusion. Prior Study Comparison No prior study available for comparison. Measurements 2D Linear Measurements IVSd: 1.27 0.6-0.9/0.6-1.0 cm LVIDd: 3.83 3.9-5.3/4.2-5.9 cm LVIDd Index: 2.47 2.4-3.2/2.2-3.1 cm/m2 LVIDs: 2.34 2.0-3.6 cm LVPWd: 1.17 0.7-1.1 cm LA Diam: 3.00 2.7-3.8/3.0-4.0 cm LAIDs Index: 1.94 1.5-2.3 cm/m2 LV Mass: 197.92 67-162/88-224 g LV Mass Index: 127.69 43-95/49-115 g/m2 LVOT Diam: 1.80 3.0+(-)1.3 cm 2D Systolic Function EF 4C: 67.60 >55% EF 2C: 62.30 >55% EF BiP: 63.30 >55% Mitral Valve MV Pk E: 0.43 MV PK A: 0.86 MV Decel Time: 161.00 E/A: 0.50 E'Lateral: 6.85 E'Medial: 4.35 E/E' Med: 9.80 E/E' Lat: 6.20 PHT: 47.00 MVA PHT: 4.68 Decel Dauphin: 2.67 Aortic Valve AoV Pk Celso: 1.24 AoV Mn Celso: 0.80 AoV VTI: 0.20 AoV Pk Grad: 6.00 Aov Mn Grad: 3.00 CIPRIANO Cont.VTI: 2.16 LVOT LVOT Pk Celso: 1.01 LVOT Mn Celso: 0.69 LVOT VTI: 0.17 LVOT Pk Grad: 4.00 LVOT Mn Grad: 2.00 LVOT Diam: 1.80 LVOT Area: 2.54 Diastolic Function MV Pk E: 0.43 MV Pk A: 0.86 E/A: 0.50 E'Medial: 4.35 E/E' Med: 9.80 E' Laterial: 6.85 E/E' Lat: 6.20 Right Ventricle TAPSE (mm): 17.40 TVS' Celso: 6.64 Tricuspid Valve RA Press: 3.00 Great Vessels Aorta Sinus of Valsalva: 3.17 2.0-3.[address] Ridge: 2.51 1.7-3.4 cm Ao Asc: 3.30 2.1-3.4 cm Updated in Other Vendor System with Status of Final Wade Palafox MD electronically signed on 08/23/2023 1:27:45 PM with status of Final
[2023-08-23 07:48] VITALS: BP 180/98; PULSE 95; RESP 20; TEMP 36.4; O2SAT 94
[2023-08-23] MEDS: Escitalopram Oxalate 20 MG TABLET PO (08:16)
[2023-08-23] MEDS: dilTIAZem HCL CD 120 MG CAP.ER.DEG PO (08:16)
[2023-08-23] MEDS: Aspirin Enteric Coated 81 MG TABLET.DR PO (08:16)
[2023-08-23] MEDS: 0.9 % Sodium Chloride Flush 3 ML SYRINGE IVFLUSH (08:16)
--- NOTE | 2023-08-23 09:06 | MHC.CM.PN ---
EMR REVIEWED, P.T. NOT RECOMMENDED ANY SERVICES/STR, ANTIC PT WILL DC HOME SELF CARE W/PT OR FAMILY FOR TRANSPORT
[2023-08-23 10:08] VITALS: BP 180/98; PULSE 95; O2SAT 94
[2023-08-23 10:56] VITALS: BP 158/82; PULSE 95; RESP 18; TEMP 36.2; O2SAT 93
--- NOTE | 2023-08-23 13:49 | PM.DS ---
DS: Providers Provider Date of Service: 08/23/23 Date of admission: 08/22/23 10:24 Date of discharge: 08/23/23 Primary care physician: Yany Williamson MD Consults: 08/22/23 07:26 Consult to Neurology Routine Consulting Provider: [facility] Reason for consultation: CVA Has provider been notified: No DS: Diagnosis Discharge Diagnosis (1) Cerebrovascular accident: Status: Acute (2) Hypertension: Status: Acute DS: Summary Hospital Course Hospital Course: 77-year-old female presents with approximately 5 days of slurred speech and right facial droop. Otherwise she has no complaints of weakness or deficits. She states she is unaware of these deficits in a family member pointed them out. In the emergency room CTA of head and neck demonstrated chronic changes without acute infarct. Monitor is normal sinus rhythm. At this point in time she will be admitted for further workup of her symptoms Hospital course Patient admitted to telemetry where monitor failed to demonstrate any acute dysrhythmias. MRI was obtained which showed an acute infarct in the left garcia radiata with additional smaller infarct in the right posterior regions. 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 She was seen in consultation by Neurology who recommended risk factor modifications. Her blood pressure regimen was adjusted she was started on atorvastatin and aspirin. At this point she is medically acceptable for discharge to home Time Attestation Discharge coordination time: Greater than 30 minutes Quality: Safe Use of Opioids Does Pt have an Active Cancer Diagnosis on the Problem List?: No Quality: Stroke Does the patient have a stroke diagnosis?: Yes Reason for No Anti-thrombotic at DC: N/A - Med Ordered Reason for No Anticoagulant at DC: Drug treatment not indicated Reason Not Initiating IV-Tpa: Not indicated Reason for No Anti-thrombotic by Day Two: N/A - Med Ordered Reason for No Statin at DC: N/A - Med Ordered Physical Exam Vital Signs: Vital Signs: Last Vital Signs Temp 97.2 F 08/23/23 10:56 Pulse 95 08/23/23 10:56 Resp 18 08/23/23 10:56 BP 158/82 H 08/23/23 10:56 Pulse Ox 93 08/23/23 10:56 O2 Del Method Room Air 08/23/23 10:56 BMI result Body Mass Index 26.7 Const: Other: Awake alert oriented x3 no acute distress Neck: Other: No bruits appreciated Resp: Other: Clear to auscultation bilaterally no rales rhonchi or wheezes Cardio: Other: Regular rate and rhythm; no S4; positive S1-S2; no S3 murmurs rubs or gallops GI: Other: Soft nontender nondistended normoactive bowel sounds x4 quadrants Neuro: Other: Cranial nerves 2-12 grossly intact as tested save right facial droop. Motor is 5/5 all extremities. Sensation is intact. No pronator drift. Toes are downgoing. Cognition appropriate Extrem: Other: No edema bilaterally Discharge Plan Discharge Anticipated Discharge Date/Time: 08/23/23 13:41 Patient Disposition: Home Health Service Discharge Diagnosis: CVA Referrals: Yany Williamson MD [Primary Care Provider] - 1 Week Discharge Medications: New hydralazine 25 mg Tablet 25 mg PO TID Qty: 90 0RF Protocol: Hold for SBP< HOLD for SBP < : 90 aspirin 81 mg Tablet,Delayed Release (Dr/Ec) 81 mg PO DAILY Qty: 30 0RF atorvastatin 10 mg Tablet 40 mg PO BEDTIME Qty: 90 0RF Continued levothyroxine 75 mcg tablet 75 mcg PO DAILY lorazepam 0.5 mg tablet 0.5 mg PO DAILY PRN (Reason: Anxiety) diltiazem HCl 120 mg capsule,extended release 24hr 120 mg PO DAILY escitalopram oxalate 20 mg tablet 20 mg PO DAILY Lumigan 0.01 % drops 1 drp ophthalmic (eye) QPM Gemtesa 75 mg tablet 75 mg PO DAILY Discontinued simvastatin 20 mg tablet 20 mg PO BEDTIME Discharge Orders: Discharge Order (Routine); Ordered 08/23/23 Ordered By: Harvinder Perkins Diet: Advance to usual diet Activity on Discharge: As tolerated Stand Alone Forms: Patient Portal Discharge page Care Plan Goals: 3 medicines have been added to your regimen. Atorvastatin 40 mg daily, hydralazine 10 mg t.i.d., and aspirin 81 mg daily Health Concerns: Follow-up with your PCP next available appointment Plan of Treatment: Resume all other pre-hospital medications accept simvastatin. You now take atorvastatin Assessment: See discharge summary
== END 2023-08-23 14:34 | disposition home health service (06) | DRG 66 ==
LOC: HO.ED 18:19 → HO.EDOVER 19:06 → HO.IMC 08-22 00:35
PROVIDERS: Physician Assistant Medical; Admitting Provider Hospitalist; Emergency Provider Emergency Medicine; PCP Family Medicine; Visit Provider Hospitalist
DX: I63.9 Cerebral infarction, unspecified (principal); R47.1 Dysarthria and anarthria; I10 Essential (primary) hypertension; E03.9 Hypothyroidism, unspecified; R29.810 Facial weakness; R29.702 NIHSS score 2; Z20.822 Contact with and (suspected) exposure to COVID-19; Z87.891 Personal history of nicotine dependence; Z79.890 Hormone replacement therapy; Z79.899 Other long term (current) drug therapy
CPT/HCPCS: 36415; 70496; 70498; 70551; 80048; 80053; 81001; 82550; 83735; 84484; 85025; 85027; 85610; 85730; 87635; 93005; 93306; 93356; 97161; 99222; 99285; J1650; Q9957; Q9967

== ENCOUNTER → 2023-08-21 13:58 | Outpatient (BNV) | payer MEDICARE, OTHER, SELFPAY | PROVIDERS: Emergency Provider Emergency Medicine; Visit Provider Internal Medicine Cardiovascular Disease | DX: R94.31 Abnormal electrocardiogram [ECG] [EKG] (principal) | CPT/HCPCS: 93010 ==

== ENCOUNTER → 2023-08-21 14:41 | Outpatient (BNV) | payer MEDICARE, OTHER, SELFPAY | PROVIDERS: Emergency Provider Emergency Medicine; Visit Provider Hospitalist | DX: I63.9 Cerebral infarction, unspecified (principal); I10 Essential (primary) hypertension | CPT/HCPCS: 99223; 99233; 99239 ==

== ENCOUNTER 2023-08-22 10:24 | Outpatient (BNV) | payer MEDICARE, OTHER, SELFPAY | END 2023-08-23 07:00 | PROVIDERS: Admitting Provider Hospitalist; Emergency Provider Emergency Medicine; PCP Family Medicine; Visit Provider Internal Medicine Cardiovascular Disease | DX: I51.9 Heart disease, unspecified (principal) | CPT/HCPCS: 93306 ==

== ENCOUNTER → 2023-08-22 10:24 | Outpatient (BNV) | payer MEDICARE, OTHER, SELFPAY | PROVIDERS: Admitting Provider Hospitalist; Emergency Provider Emergency Medicine; PCP Family Medicine; Visit Provider Psychiatry & Neurology Neurology | DX: I63.9 Cerebral infarction, unspecified (principal); I10 Essential (primary) hypertension | CPT/HCPCS: 99222 ==

== ENCOUNTER 2024-08-13 12:25 | Inpatient (IN) | payer MEDICARE, OTHER, SELFPAY ==
--- NOTE | ~2024-08-13 | XR_ITS ---
EXAMINATION: XR CHEST CLINICAL INFORMATION: chest pain COMPARISON: None available. TECHNIQUE: 2 views of the chest were obtained. FINDINGS: Eventrated right diaphragm. The cardiac, hilar, and mediastinal contours are normal. The lungs are clear bilaterally. There is no pneumothorax or pleural effusion. There is no focal osseous or soft tissue abnormality. Degenerative spinal changes present. Cholecystectomy clips noted. XR/XR chest 2V IMPRESSION: No active pulmonary disease. Electronically signed by: Jabari Burgos MD 08/13/2024 12:59 PM EST
--- NOTE | 2024-08-13 12:27 | ECG_ITS ---
Test Reason : CHEST PAIN Blood Pressure : */* mmHG Vent. Rate : 78 BPM Atrial Rate : 78 BPM P-R Int : 172 ms QRS Dur : 72 ms QT Int : 408 ms P-R-T Axes : 44 -39 46 degrees QTcB Int : 465 ms Normal sinus rhythm Left axis deviation Cannot rule out Anterior infarct , age undetermined Abnormal ECG When compared with ECG of 21-Aug-2023 14:37, Minimal criteria for Anterior infarct are now Present Nonspecific T wave abnormality no longer evident in Lateral leads QT has lengthened Referred By: Generic ED Physician Electronically Signed By: Abdon Beaver
[2024-08-13 12:37] VITALS: BP 122/69; PULSE 75; RESP 20; TEMP 36.6; O2SAT 94; BMI 22.6
--- NOTE | 2024-08-13 12:48 | ED_ITS ---
HPI - Chest Pain General Chief Complaint: Chest Pain Stated Complaint: Chest pain Time Seen by Provider: 08/13/24 16:56 Source: patient and EMS Mode of arrival: EMS Limitations: no limitations History of Present Illness ED Provider: Nati Starks NP HPI narrative: Patient is an 78-year-old female who presents emergency department for evaluation. She reports that last night she was noticing pain ?in my teeth pointing to her left lower jaw?. She reports that she awoke at approximately 04:00 this morning and she was having pain to her left anterior chest that was radiating up to the left lateral neck in the left shoulder/ arm and back referring to the posterior shoulder. She eventually went back to bed at approximately 07:00 this morning when she awoke at 10:30 she states that the pain was still present had subsided some. Pain is currently there has been constant throughout the day states 09/09. She reports feeling generally fatigued today. She denies associated diaphoresis, nausea, vomiting, worsening of pain on exertion. Denies any recent ill like symptoms/URI symptoms. Denies history of similar pain in the past. Related Data Home Medications ?Medication ?Instructions ?Recorded ?Confirmed bimatoprost 0.01 % eye drops 1 drp ophthalmic (eye) BEDTIME 08/21/23 08/13/24 (Mahesh) diltiazem HCl 120 mg 120 mg PO DAILY 08/21/23 08/13/24 capsule,extended release 24 hr escitalopram oxalate 20 mg tablet 20 mg PO DAILY 08/21/23 08/13/24 levothyroxine 75 mcg tablet 75 mcg PO DAILY 08/21/23 08/13/24 lorazepam 0.5 mg tablet 0.5 mg PO DAILY PRN Anxiety 08/21/23 08/13/24 atorvastatin 10 mg tablet 40 mg PO DAILY 08/13/24 08/13/24 Previous Rx's ?Medication ?Instructions ?Recorded aspirin 81 mg tablet,delayed 81 mg PO DAILY #30 tabs 08/23/23 release hydralazine 25 mg tablet 25 mg PO TID #90 tabs 08/23/23 heparin (porcine) 25,000 unit/250 25,000 unit (250 mL) continuous IV 08/14/24 mL in 0.45 % sodium chloride IV infusion .Q0M #6,000 mL soln Allergies Allergy/AdvReac Type Severity Reaction Status Date / Time No Known Allergies Allergy Verified 08/13/24 12:39 Review of Systems 2 Review of Systems: Yes all other systems are reviewed and are negative [facility] Past Medical History Attestation statement: The following information was validated with the patient. Source: old records reviewed Medical History (Updated 08/14/24 @ 14:27 by Abdon Beaver MD) Glaucoma Dysarthria Cerebrovascular accident Hypertension Surgical History (Updated 08/14/24 @ 13:09 by Angie Barnhart RN) Hx of breast reduction, elective Social History Social History Household Members: None Household Members Other:: dog Housing: House Do you presently have visiting nurse or other home services: No Patient Tobacco Use Status: Former Tobacco user Smoked in Last 30 Days: No Use of substances other than those prescribed or required for medical reasons: Yes Substance Use Type: Marijuana Substance Use Frequency: Daily Last Used Substance: Days (ago) Currently Displaying Signs/Symptoms of Drug Intoxication Withdrawal: No Have you been hit, kicked, punched, or otherwise hurt by someone within the past year? If so, by whom?: No Do you feel safe in your current relationship?: Yes Is there a partner from a previous relationship who is making you feel unsafe now?: No Are you made to feel afraid or neglected: No [facility] Practices: orthodoxy Advance Directives: No Advance Directives Information Provided: Yes Do you have a plan to hurt others: No Plan Recently lost weight without trying: Yes How much weight loss: 24-33 pounds Eating poorly because of decreased appetite: Yes Nutrition screen score: 6 Nutrition Risks: No Nutritional Risk Patient : No service: No Physical Exam 2 Vital Signs: Vital Signs: Last Vital Signs Temp 98.1 F 08/14/24 15:01 Pulse 69 08/14/24 15:01 Resp 18 08/14/24 15:01 BP 160/71 H 08/14/24 15:01 Pulse Ox 96 08/14/24 15:01 O2 Del Method Room Air 08/14/24 15:01 BMI result Body Mass Index 22.6 Appearance: Alert.?Oriented to person, place and time. No acute distress.?Normal affect. Eyes: Pupils equal, round and reactive to light.? ENT: Pharynx normal.?? Neck: Normal inspection.? Neck supple.??No JVD. CVS: Heart sounds normal. Normal heart rate and rhythm.? Pulses normal.?? Respiratory: No respiratory distress.? Lung sounds clear to auscultation bilaterally?? Abdomen: Soft and non-tender. Normoactive bowel sounds. No pulsatile mass.?? Skin: Skin warm and dry.? Normal skin color.? ?? Extremities: No lower extremity edema.? No calf ttp? Neuro: Moves all extremities spontaneously. Sensation intact bilaterally. CN II- XII intact. No focal neuro deficits. Ambulates with normal steady gait. Course Course Course Narrative: RME: 78-year-old female presents to ED for chest pain and fatigue denies sweats. Patient states back pain and left-sided neck pain. Patient denies any shortness of breath. Labs EKG chest x-ray ordered. Medications Administered Generic Name Dose Route Start Last Admin Trade Name Freq PRN Reason Stop Dose Admin Acetaminophen 650 mg 08/13/24 19:58 08/14/24 08:47 Acetaminophen 325 Mg Tablet PO 650 mg Q6H PRN Administration Pain, Mild 1-3,fever,headache Aspirin 81 mg 08/14/24 09:00 08/14/24 08:44 Aspirin Enteric Coated 81 Mg Tablet. PO 81 mg DAILY MARIANA Administration Atorvastatin Calcium 40 mg 08/14/24 09:00 08/14/24 08:44 Atorvastatin Calcium 40 Mg Tablet PO 40 mg DAILY MARIANA Administration Escitalopram Oxalate 20 mg 08/14/24 09:00 08/14/24 08:44 Escitalopram Oxalate 20 Mg Tablet PO 20 mg DAILY MARIANA Administration Heparin Sodium (Porcine) 2,000 unit 08/13/24 19:37 08/14/24 15:32 Heparin Sodium,Porcine 5,000 Unit/Ml Vial 40 unit/kg (2000 unit) 2,000 unit IVPUSH Administration PROTOCOL BOLUS PRN 40 unit/kg - Heparin Protocol Protocol Heparin Sodium/Sodium Chloride 25,000 unit in 250 mls @ 0 mls/hr 08/13/24 19:45 08/14/24 15:32 Heparin Sodium,Porcine/1/2ns IVCONT 12 units/kg/hr .Q0M MARIANA 6.1 mls/hr Titration Protocol Per Protocol Levothyroxine Sodium 75 mcg 08/14/24 09:00 08/14/24 08:44 Levothyroxine Sodium 75 Mcg Tablet PO 75 mcg DAILY@0600 MARIANA Administration Sodium Chloride 3 ml 08/14/24 00:00 08/14/24 15:56 0.9 % Sodium Chloride Flush 3 Ml Syringe IVFLUSH Not Given QSHIFT MARIANA Discontinued Medications Generic Name Dose Route Start Last Admin Trade Name Nora PRN Reason Stop Dose Admin Aspirin 243 mg 08/13/24 18:16 08/13/24 18:35 Aspirin 81 Mg Tab.Chew PO 08/13/24 18:17 243 mg ONCE ONE Administration Heparin Sodium (Porcine) 3,000 unit 08/13/24 19:37 08/13/24 19:51 Heparin Sodium,Porcine 5,000 Unit/Ml Vial 60 unit/kg (3000 unit) 08/13/24 19:38 3,000 unit IVPUSH Administration ONCE ONE Acetaminophen 1,000 mg in 100 mls @ 400 mls/hr 08/14/24 01:37 08/14/24 02:30 Ofirmev IV 08/14/24 01:51 Infused ONCE ONE Infusion Medical Decision Making Medical Decision Making [facility] Narrative: Patient is an 78-year-old female with past medical history of dysarthria, CVA, hypertension who presents to the emergency department for evaluation with complaint of chest pain as per HPI. No evidence of volume overload or shock on exam. In his EKG without signs of acute ischemia/STEMI, rate was in the 70s. At the time of my evaluation she is noted to be bradycardic in the 40s, on telemetry appears to be a regular rhythm however will obtain repeat EKG for further evaluation. She had serum labs obtained prior to my assumption of care with high sensitive troponin below detectable limits x2, CBC without leukocytosis anemia or thrombocytopenia. No significant electrolyte derangement. No HANNAH. BNP 123. Negative viral serologies. Low suspicion for acute PE (Wells low risk no clinical signs and symptoms of DVT of the lower extremities), pneumothorax, thoracic aortic dissection, cardiac effusion / tamponade. No recent trauma or injury, no tracheal deviation, unlikely tension pneumothorax. No recent URI symptoms to suggest viral illness, pneumonia, costochondritis. No abdominal tenderness upon palpation, negative Andrea sign, unlikely acute cholecystitis, choledocholithiasis, no fever or jaundice to suggest acute cholangitis, may possibly be biliary colic secondary to cholelithiasis. Denies associated acid reflux, no tenderness upon palpation over the epigastrium or left upper quadrant to suggest gastritis, no recent hematemesis history less likely to suggest PUD. Denies excessive alcohol consumption, history of diabetes, lower suspicion acute pancreatitis. She takes a daily low-dose aspirin provide with additional aspirin 243 mg p.o. chest x-ray is without evidence of acute consolidation infiltrate pulmonary congestion. Planning for pain controlled, repeat EKG and reassessment Overall, ACS is being considered given higher risk features, HEART score: 6. Repeat EKG with ventricular rate of 48, junctional rhythm with, wide QRS complex, left bundle-branch block, QTC 471. Consulting with Cardiology, Dr. Beaver. States very unlikely that this is ischemic pain. No pcemaker ability here. Not clear whether this is particularly the issue causing her pain. Not feel as though she requires heparinization at this time. Advised ambulatory trial to assure she has responsive increase in heart rate, if she does not, has pauses, becomes more luis, or is very symptomatic she will need to be transfered for possible pacemaker. Ambulatory O2 trial was without worsening bradycardia, pulse did not exceed 60, no pauses noted on telemetry, no dizziness lightheadedness or unsteady gait. Did not endorse change in the pain. Continues to report that it is mild 2/10. Discussed again with Cardiology Dr. Beaver, pain is not reproducible, advises at this time to heparinize and admit keep NPO after midnight. Will speak with hospitalist team Differential Diagnosis Differential Diagnoses: The differential diagnosis associated with the presentation includes (See narrative above) Admission/Observation Consideration of admission/observation: Escalation of care including admission/observation considered (See narrative above and course narrative for further detail) Lab Data MDM Lab Attestation statement: I reviewed the patient's lab results. 08/14/24 04:33 08/14/24 04:33 Labs: Lab Results 08/13/24 08/13/24 08/13/24 Range/Units 13:04 13:05 16:48 WBC 7.5 (4.8-10.8) X10*3/uL RBC 4.74 (4.20-5.50) X10*6/uL Hgb 13.5 (12.0-16.0) g/dl Hct 39.8 (37.0-47.0) % MCV 84.0 (80.0-98.0) fL MCH 28.5 (27.0-33.0) pg MCHC 33.9 (31.0-35.0) g/dl RDW 12.7 (11.0-16.0) % Plt Count 247 (160-400) X10*3/uL MPV 9.9 (9.4-12.3) fL Immature Gran % (Auto) 0.3 (0.0-0.4) % Neut % (Auto) 70.8 (45-73) % Lymph % (Auto) 17.6 L (20-40) % [place] % (Auto) 9.4 (2-11) % Eos % (Auto) 1.5 (0-4) % Baso % (Auto) 0.4 (0-2) % Lymph # (Auto) 1.3 (1.2-4.9) X10*3/uL [place] # (Auto) 0.7 (0.1-1.2) X10*3/uL Eos # (Auto) 0.1 (0.0-0.4) X10*3/uL Baso # (Auto) 0.0 (0.0-0.2) X10*3/uL Abs Immat Gran (auto) 0.02 (0.00-0.03) X10*3/uL Absolute Neuts (auto) 5.3 (2.0-8.3) x10*3/uL Absolute Nucleated RBC 0.000 (0.0-0.012) X10*3/uL Nucleated RBC % (auto) 0.0 (0.0-0.2) /100WBC PT 11.2 (10.9-12.4) SEC INR 1.0 (0.9-1.1) APTT 25.4 L (26.0-36.8) SEC Sodium 141 (135-145) mmol/L Potassium 4.1 (3.3-5.1) mmol/L Chloride 113 H (96-108) mmol/L Carbon Dioxide 24 (22-29) mmol/L Anion Gap 8 L (12-20) BUN 22 H (9-16) mg/dL Creatinine 1.20 (0.5-1.4) mg/dL Estim Creat Clear Calc 25.5 Estimated GFR 43 Random Glucose 134 H (60-115) mg/dL Calcium 8.8 (8.4-10.2) mg/dL Total Bilirubin 0.7 (0.0-1.0) mg/dL AST 24 (5-31) U/L ALT 22 (0-31) U/L Alkaline Phosphatase 88 (39-117) U/L Troponin I High Sens < 2.7 < 2.7 (<3.5-17.0) ng/L B-Natriuretic Peptide 123 H (<100) pg/mL Total Protein 6.8 (6.5-8.0) g/dL Albumin 4.1 (3.5-5.0) g/dL TSH 1.65 (0.32-4.0) uIU/mL Influenza Type A (PCR) NEGATIVE (Negative) Influenza Type B (PCR) NEGATIVE (Negative) RSV RNA Qual (PCR) NEGATIVE (Negative) SARS-CoV-2 RNA (RT-PCR) NEGATIVE (Negative) 08/13/24 Range/Units 19:41 WBC (4.8-10.8) X10*3/uL RBC (4.20-5.50) X10*6/uL Hgb (12.0-16.0) g/dl Hct (37.0-47.0) % MCV (80.0-98.0) fL MCH (27.0-33.0) pg MCHC (31.0-35.0) g/dl RDW (11.0-16.0) % Plt Count (160-400) X10*3/uL MPV (9.4-12.3) fL Immature Gran % (Auto) (0.0-0.4) % Neut % (Auto) (45-73) % Lymph % (Auto) (20-40) % [place] % (Auto) (2-11) % Eos % (Auto) (0-4) % Baso % (Auto) (0-2) % Lymph # (Auto) (1.2-4.9) X10*3/uL [place] # (Auto) (0.1-1.2) X10*3/uL Eos # (Auto) (0.0-0.4) X10*3/uL Baso # (Auto) (0.0-0.2) X10*3/uL Abs Immat Gran (auto) (0.00-0.03) X10*3/uL Absolute Neuts (auto) (2.0-8.3) x10*3/uL Absolute Nucleated RBC (0.0-0.012) X10*3/uL Nucleated RBC % (auto) (0.0-0.2) /100WBC PT (10.9-12.4) SEC INR (0.9-1.1) APTT (26.0-36.8) SEC Sodium (135-145) mmol/L Potassium (3.3-5.1) mmol/L Chloride (96-108) mmol/L Carbon Dioxide (22-29) mmol/L Anion Gap (12-20) BUN (9-16) mg/dL Creatinine (0.5-1.4) mg/dL Estim Creat Clear Calc Estimated GFR Random Glucose (60-115) mg/dL Calcium (8.4-10.2) mg/dL Total Bilirubin (0.0-1.0) mg/dL AST (5-31) U/L ALT (0-31) U/L Alkaline Phosphatase (39-117) U/L Troponin I High Sens < 2.7 (<3.5-17.0) ng/L B-Natriuretic Peptide (<100) pg/mL Total Protein (6.5-8.0) g/dL Albumin (3.5-5.0) g/dL TSH (0.32-4.0) uIU/mL Influenza Type A (PCR) (Negative) Influenza Type B (PCR) (Negative) RSV RNA Qual (PCR) (Negative) SARS-CoV-2 RNA (RT-PCR) (Negative) Independent Interpretation I performed an independent interpretation of an: EKG and Plain X-Ray (No consolidation or infiltrate) Interpretation: EKG revealing normal sinus rhythm with ventricular rate of 78, QTC 465, no ST elevation, no ST depression Radiology Impression Discussion of test interpretation with radiology: I have reviewed the radiologist's reading. Radiologist Impression: XR/XR chest 2V IMPRESSION: No active pulmonary disease. External Record Review External record reviewed: Outpatient record Prescription Management I considered prescription management with: Pain Medication Critical Care Time Critical Care Time Critical Care Time: Yes Total Critical Care Time: 45 Attestation: I personally attest to this critical care time spent taking care of the patient exclusive of all other billable procedures was approximately 45 minutes including initial evaluation of patient, ordering tests, x-ray interpretation, EKG interpretation, IV heparin, medical consultation, documentation, re- evaluation. Discharge Plan Discharge Clinical Impression: Chest pain, Left bundle branch block Patient Disposition: Admitted As Inpatient
[2024-08-13 13:09] LABS: MANUAL DIFF FLAG NO
[2024-08-13 13:12] LABS: Basophils Percent Auto 0.4 % (0-2); Eosinophils Absolute Auto 0.1 X10*3/uL (0.0-0.4); Eosinophils Percent Auto 1.5 % (0-4); Hematocrit 39.8 % (37.0-47.0); Hemoglobin 13.5 g/dl (12.0-16.0); Imm Gran Abs Auto 0.02 X10*3/uL (0.00-0.03); Imm Gran Pct Auto 0.3 % (0.0-0.4); Lymphocytes Absolute Auto 1.3 X10*3/uL (1.2-4.9); Lymphocytes Percent Auto 17.6 % (20-40); Mean Corpuscular HGB Conc 33.9 g/dl (31.0-35.0); Mean Corpuscular Hemoglobin 28.5 pg (27.0-33.0); Mean Platelet Volume 9.9 fL (9.4-12.3); Monocytes Absolute Auto 0.7 X10*3/uL (0.1-1.2); Monocytes Percent Auto 9.4 % (2-11); Neutrophils Absolute Auto 5.3 x10*3/uL (2.0-8.3); Neutrophils Percent Auto 70.8 % (45-73); Platelet Count 247 X10*3/uL (160-400); Red Blood Count 4.74 X10*6/uL (4.20-5.50); Red Cell Distribution Width 12.7 % (11.0-16.0); White Blood Count 7.5 X10*3/uL (4.8-10.8)
[2024-08-13 13:17] LABS: Prothrombin Time 11.2 SEC (10.9-12.4)
[2024-08-13 13:20] LABS: Partial Thromboplastin Time 25.4 SEC (26.0-36.8)
[2024-08-13 13:32] LABS: Alanine Aminotransferase 22 U/L (0-31); Albumin Level 4.1 g/dL (3.5-5.0); Alkaline Phosphatase 88 U/L (39-117); Anion Gap 8 (12-20); Aspartate Amino Transferase 24 U/L (5-31); Bilirubin Total 0.7 mg/dL (0.0-1.0); Blood Urea Nitrogen 22 mg/dL (9-16); Calcium 8.8 mg/dL (8.4-10.2); Carbon Dioxide 24 mmol/L (22-29); Chloride 113 mmol/L (96-108); Creatinine Clr Calc Pharmacy 25.5; Estimated Glomerular Filt Rate 43; Glucose Random 134 mg/dL (60-115); Potassium 4.1 mmol/L (3.3-5.1); Sodium 141 mmol/L (135-145); Total Protein 6.8 g/dL (6.5-8.0)
[2024-08-13 13:34] LABS: B Type Natriuretic Peptide 123 pg/mL (<100)
[2024-08-13 13:39] LABS: Troponin-I High Sensitivity < 2.7 ng/L (<3.5-17.0)
[2024-08-13 14:14] LABS: Influenza A PCR NEGATIVE (Negative); Influenza B PCR NEGATIVE (Negative); Resp Syncy Virus RNA Qual PCR NEGATIVE (Negative); SARS COV2 PCR INHOUSE NEGATIVE (Negative)
[2024-08-13 16:43] VITALS: BP 121/54; PULSE 54; RESP 14; TEMP 36.6; O2SAT 97
[2024-08-13 17:16] LABS: Troponin-I High Sensitivity < 2.7 ng/L (<3.5-17.0)
--- NOTE | 2024-08-13 18:05 | ECG_ITS ---
Test Reason : BRADYCARDIA Blood Pressure : */* mmHG Vent. Rate : 48 BPM Atrial Rate : * BPM P-R Int : * ms QRS Dur : 136 ms QT Int : 528 ms P-R-T Axes : * -4 167 degrees QTcB Int : 471 ms Junctional rhythm Left bundle branch block Abnormal ECG When compared with ECG of 13-Aug-2024 12:32, Wide QRS rhythm has replaced Sinus rhythm Vent. rate has decreased by 30 bpm Referred By: Nati Starks Electronically Signed By: Abdon Beaver
[2024-08-13 18:33] VITALS: BP 131/64; PULSE 50; RESP 16; O2SAT 96
[2024-08-13] MEDS: Aspirin 81 MG TAB.CHEW 243 MG PO (18:35)
[2024-08-13 18:57] LABS: TSH reflex Free T4 1.65 uIU/mL (0.32-4.0)
[2024-08-13 19:40] VITALS: BP 128/61; PULSE 54; RESP 14; O2SAT 97
[2024-08-13] MEDS: Heparin Sodium,Porcine 5,000 UNIT/ML VIAL 3000 UNIT IVPUSH (19:51)
[2024-08-13 19:53] VITALS: BP 129/58; PULSE 57; RESP 19; TEMP 36.5; O2SAT 96
--- NOTE | 2024-08-13 19:59 | P.HPHOSP_ITS ---
History of Present Illness Date of Service: 08/13/24 Chief Complaint: Chest pain This is a 78-year-old female with pertinent history of CVA, hypertension, mood disorder, hypothyroidism, overactive bladder who presents to the emergency department for evaluation of chest pain. Patient states it was sudden onset last night about 04:00 when she was sleeping. It was midsternal and radiated to the jaw and left arm. It lasted for about 2 hours and subsided on its own. No aggravating or relieving factors. No associated sweating, nausea or vomiting. Also had similar chest discomfort on the day of presentation which did not increase with exertion. Patient states she feels tired. Denies symptoms of gastroesophageal reflux disease. No fever, chills, cough, shortness of breath, abdominal pain, changes in urinary or bowel habits. In the emergency department, EKG with left bundle branch block. Troponin within normal limits. Cardiology was consulted who requested IV heparin Review of Systems 2 Constitutional: Constitutional: Reports fatigue and Reports malaise Cardiovascular: Cardiovascular: Reports chest pain and Reports chest pain at rest Gastrointestinal: Gastrointestinal: Reports no additional gastrointestinal complaints Genitourinary: Genitourinary: Reports no additional female genitourinary complaints Endocrine: Endocrine: Reports fatigue PMFSH Medical History Dysarthria Cerebrovascular accident Hypertension Pertinent family history: Not significant due to age Social History Household Members: None Household Members Other:: dog Housing: House Do you presently have visiting nurse or other home services: No Patient Tobacco Use Status: Former Tobacco user Smoked in Last 30 Days: No Use of substances other than those prescribed or required for medical reasons: No Substance Use Type: Marijuana Advance Directives: No Advance Directives Information Provided: Yes service: No Meds Allergies Allergy/AdvReac Type Severity Reaction Status Date / Time No Known Allergies Allergy Verified 08/13/24 12:39 Active Medications: Current Medications Heparin Sodium (Porcine) (Heparin Sodium,Porcine 5,000 Unit/Ml Vial) 2,000 unit 40 unit/kg (2000 unit) IVPUSH PROTOCOL BOLUS PRN; Protocol PRN Reason: 40 unit/kg - Heparin Protocol Heparin Sodium (Porcine) (Heparin Sodium,Porcine 5,000 Unit/Ml Vial) 4,100 unit 80 unit/kg (4100 unit) IVPUSH PROTOCOL BOLUS PRN; Protocol PRN Reason: 80 unit/kg - Heparin Protocol Heparin Sodium/Sodium Chloride (Heparin Sodium,Porcine/1/2ns) 25,000 unit in 250 mls @ 0 mls/hr IVCONT .Q0M [facility]IANA; Protocol Home Medications ?Medication ?Instructions ?Recorded ?Confirmed ?Last Taken ?Type bimatoprost 0.01 % eye drops 1 drp ophthalmic (eye) QPM 08/21/23 08/21/23 Unknown History (Lumigan) diltiazem HCl 120 mg 120 mg PO DAILY 08/21/23 08/21/23 Unknown History capsule,extended release 24 hr escitalopram oxalate 20 mg tablet 20 mg PO DAILY 08/21/23 08/21/23 Unknown History levothyroxine 75 mcg tablet 75 mcg PO DAILY 08/21/23 08/21/23 Unknown History lorazepam 0.5 mg tablet 0.5 mg PO DAILY PRN Anxiety 08/21/23 08/21/23 Unknown History vibegron 75 mg tablet (Gemtesa) 75 mg PO DAILY 08/21/23 08/21/23 Unknown History Physical Exam 2 Vital Signs and Narrative: Vital Signs: Last Vital Signs Temp 97.7 F 08/13/24 19:53 Pulse 57 08/13/24 19:53 Resp 19 08/13/24 19:53 BP 129/58 L 08/13/24 19:53 Pulse Ox 96 08/13/24 19:53 O2 Del Method Room Air 08/13/24 19:53 BMI result Body Mass Index 22.6 Elderly female lying in bed in no distress Neck supple, no JVD Regular rate and rhythm, S1-S2 heard Regular breath sounds bilaterally, no wheezing or crackles appreciated Abdomen soft nontender, no guarding, no rigidity Patient is awake, alert and oriented to self, place, time and person ; no focal motor deficit Psych: Normal mood No pedal edema Results Labs 08/13/24 13:04 08/13/24 13:04 Labs: Laboratory Results - last 24 hr 08/13/24 08/13/24 08/13/24 13:04 13:05 16:48 MCV 84.0 MCH 28.5 MCHC 33.9 RDW 12.7 Plt Count 247 MPV 9.9 Immature Gran % (Auto) 0.3 Neut % (Auto) 70.8 Lymph % (Auto) 17.6 L [place] % (Auto) 9.4 Eos % (Auto) 1.5 Baso % (Auto) 0.4 Lymph # (Auto) 1.3 [place] # (Auto) 0.7 Eos # (Auto) 0.1 Baso # (Auto) 0.0 Abs Immat Gran (auto) 0.02 Absolute Neuts (auto) 5.3 Absolute Nucleated RBC 0.000 Nucleated RBC % (auto) 0.0 PT 11.2 INR 1.0 APTT 25.4 L Anion Gap 8 L Estim Creat Clear Calc 25.5 Estimated GFR 43 Random Glucose 134 H Calcium 8.8 Total Bilirubin 0.7 AST 24 ALT 22 Alkaline Phosphatase 88 Troponin I High Sens < 2.7 < 2.7 B-Natriuretic Peptide 123 H Total Protein 6.8 Albumin 4.1 TSH 1.65 Influenza Type A (PCR) NEGATIVE Influenza Type B (PCR) NEGATIVE RSV RNA Qual (PCR) NEGATIVE SARS-CoV-2 RNA (RT-PCR) NEGATIVE Imaging Radiologist's Impressions: Impressions Chest X-Ray 08/13/24 12:40 IMPRESSION: No active pulmonary disease. Electronically signed by: Jabari Burgos MD 08/13/2024 12:[address] [facility] Assessment and Plan (1) Chest pain: Status: Acute Plan This is a 78-year-old female with pertinent history of CVA, hypertension, mood disorder, hypothyroidism, overactive bladder who presents to the emergency department for evaluation of chest pain. #. Chest pain, concerning for ACS: Will admit patient with IV heparin. Continuous cardiac monitoring. Will keep patient NPO. Appreciate cardiology input. Obtaining echo. Patient on aspirin and high-intensity statin. Defer beta-aron as heart rate in the 50s. #. CVA: On aspirin and statin #. Hypothyroidism: On Synthroid #. Hypertension: Continue home antihypertensives #. Mood disorder: Continue home mood stabilizers #. Overactive bladder: On Gemtesa Med rec pending DVT prophylaxis: IV heparin Full code Admit as inpatient and will require two night minimum hospital stay for IV heparin, close cardiac monitoring (as above), which is not possible in a lesser acute setting. Specialist consult pending Quality Stroke Does the patient have a stroke diagnosis?: No VTE Prior VTE?: No VTE Risk Level:: Medical - moderate - high VTE Device Contraindication: Treatment Not Indicated VTE Drug Contraindication: N/A - Med Ordered
[2024-08-13] MEDS: Heparin Sodium,Porcine/1/2NS 25,000 UNIT/250 ML IV.SOLN 6.1 UNIT IVCONT (20:02)
[2024-08-13 20:14] LABS: Troponin-I High Sensitivity < 2.7 ng/L (<3.5-17.0)
--- NOTE | 2024-08-13 20:15 | PC.NURSE ---
Pt resting comfortably on stretcher. #20g iv placed in RFA. On ncr operator, sinus bradycardia. Pt denies any current pain or distress. Heparin drip started at 12u/kg/hr, verified with second RN Lynsey. Call rascon within reach, Pt son at bedside. Plan of care ongoing.
--- NOTE | 2024-08-13 21:23 | PHA.MEDREC ---
Addendum entered by Gary Guajardo 08/13/24 21:40: reviewed Original Note: Pharmacy Consult ? Medication Reconciliation Pharmacy has completed the medication reconciliation. Spoke with patient and she confirmed her medications. She confirmed she herself stopped the Gemtesa about 1 weeks ago and stated its too expensive of a medication and she isn't seeing much of an of a change or result while taking it. She did confirm too she does take a piece 5mg THC chocolate square at bedtime every day to help her sleep. She confirmed she takes a bunch of OTC vitamins but did not remember the name or dosages of most of them at this time. She confirmed she took all her morning medicaitons this morning.
--- NOTE | 2024-08-13 23:45 | PC.NURSE ---
This life insurance underwriter assumed care of this Pt at 2300. Pt appears to be sleeping, equal, non labored, respirations. Heparin drip running at 12 units/kg/hr.
[2024-08-13 23:53] VITALS: BP 124/47; PULSE 49; RESP 16; O2SAT 95
[2024-08-14] VITALS (10 sets, daily range): BP systolic 135–167; BP diastolic 56–78; PULSE 46–69; RESP 14–20; TEMP 36.6–37.1; O2SAT 94–97; BMI 22.6
--- NOTE | 2024-08-14 | ECG_ITS ---
Test Reason : chest pain Blood Pressure : */* mmHG Vent. Rate : 54 BPM Atrial Rate : 54 BPM P-R Int : 186 ms QRS Dur : 86 ms QT Int : 458 ms P-R-T Axes : 51 -23 51 degrees QTcB Int : 434 ms Sinus bradycardia Nonspecific ST and T wave abnormality Abnormal ECG When compared with ECG of 13-Aug-2024 18:19, Sinus rhythm has replaced Wide QRS rhythm Referred By: Geovani Humphrey Electronically Signed By: Abdon Beaver
--- NOTE | 2024-08-14 00:10 | MHC.EDTECH ---
late entry: this tech assumed care of pt @ 2300, pt was witnessed sleeping in stretcher, w/ equal chest rise and unlabored respirations present, pt is also connected to cardiac and continuos o2 monitor
[2024-08-14 02:14] LABS: PTT Heparin Drip 81.4 SEC (53-77.9)
[2024-08-14] MEDS: Acetaminophen 1,000 MG/100 ML PIGGYBACK 400 MG IV (02:15)
[2024-08-14 04:53] LABS: Hematocrit 36.9 % (37.0-47.0); Hemoglobin 12.7 g/dl (12.0-16.0); Mean Corpuscular HGB Conc 34.4 g/dl (31.0-35.0); Mean Corpuscular Hemoglobin 29.2 pg (27.0-33.0); Mean Corpuscular Volume 84.8 fL (80.0-98.0); Mean Platelet Volume 9.9 fL (9.4-12.3); Platelet Count 221 X10*3/uL (160-400); Red Blood Count 4.35 X10*6/uL (4.20-5.50); Red Cell Distribution Width 12.9 % (11.0-16.0); White Blood Count 9.5 X10*3/uL (4.8-10.8)
[2024-08-14 05:07] LABS: INTERNATIONAL NORM RATIO 1.1 (0.9-1.1); Prothrombin Time 12.3 SEC (10.9-12.4)
[2024-08-14 05:14] LABS: Anion Gap 13 (12-20); Blood Urea Nitrogen 20 mg/dL (9-16); Calcium 8.9 mg/dL (8.4-10.2); Carbon Dioxide 20 mmol/L (22-29); Chloride 113 mmol/L (96-108); Creatinine Clr Calc Pharmacy 29.9; Estimated Glomerular Filt Rate 52; Glucose Random 79 mg/dL (60-115); Potassium 3.7 mmol/L (3.3-5.1); Sodium 142 mmol/L (135-145)
[2024-08-14 05:19] LABS: Troponin-I High Sensitivity < 2.7 ng/L (<3.5-17.0)
--- NOTE | 2024-08-14 07:00 | CA_ITS ---
Transthoracic Echocardiogram Patient (Last, First, Middle): Gisela Agrawal J Gender: Female Date of : 1945 Age: 78 Procedure Date: 08/14/2024 Procedure Type: Transthoracic Echocardiogram Location: ER Height: 149.86 cm Weight: 50.8 kg BSA: 1.44 m2 Heart Rate: 53 bpm BP: 181 / 79 mmHg Photo Producer: SB Referring MD: Naomy Hutchison MD Symptoms: ACS Study Quality: Adequate ECG Rhythm: Bradycardia Conclusions: - Normal left ventricular size, thickness, and systolic function. The visually estimated ejection fraction is between 55-60%. - The basal inferior segment is akinetic. - Normal right ventricular cavity size and systolic function. - Moderate plaque is seen in the arch. Findings Left Ventricle Normal left ventricular size, thickness, and systolic function. The visually estimated ejection fraction is between 55-60%. There is evidence of regional wall motion abnormalities. Abnormal diastolic function is noted. Spectral Doppler is indicative of an impaired relaxation filling pattern. Elevated filling pressures. Wall Motion Rest Echo Findings The basal inferior segment is akinetic. Right Ventricle Normal right ventricular cavity size and systolic function. Atria The left atrium is normal in size. There is an interatrial septal aneurysm seen bowing to the left. There is no evidence of interatrial shunt by color Doppler. The right atrium is normal in size. Aortic Valve Normal aortic valve structure and function. Pulmonic Valve The pulmonic valve is normal. There is trace pulmonic valve regurgitation. Tricuspid Valve Normal tricuspid valve structure. There is trace tricuspid valve regurgitation. Great Vessels All visible segments of the aorta are normal in size. Moderate plaque is seen in the arch. Venous The inferior vena cava is normal in size and collapses greater than 50% with inspiration. Pericardium/Pleural There is no evidence of pericardial effusion. Measurements 2D Linear Measurements IVSd: 1.14 0.6-0.9/0.6-1.0 cm LVIDd: 5.07 3.9-5.3/4.2-5.9 cm LVIDd Index: 3.52 2.4-3.2/2.2-3.1 cm/m2 LVIDs: 3.44 2.0-3.6 cm LVPWd: 0.70 0.7-1.1 cm LA Diam: 3.70 2.7-3.8/3.0-4.0 cm LAIDs Index: 2.57 1.5-2.3 cm/m2 LV Mass: 208.05 67-162/88-224 g LV Mass Index: 144.48 43-95/49-115 g/m2 LVOT Diam: 2.20 3.0+(-)1.3 cm 2D Systolic Function EF 4C: 65.70 >55% EF 2C: 72.20 >55% EF BiP: 69.40 >55% Mitral Valve MV Pk E: 0.81 MV PK A: 0.93 MV Decel Time: 197.00 E/A: 0.90 E'Lateral: 4.03 E'Medial: 4.57 E/E' Med: 17.80 E/E' Lat: 20.20 PHT: 58.00 MVA PHT: 3.79 Decel Lucas: 4.13 Aortic Valve AoV Pk Celso: 1.02 AoV Pk Grad: 4.00 CIPRIANO: 4.06 LVOT LVOT Pk Celso: 1.04 LVOT Mn Celso: 0.69 LVOT VTI: 0.25 LVOT Pk Grad: 4.00 LVOT Mn Grad: 2.00 LVOT Diam: 2.20 LVOT Area: 3.80 Diastolic Function MV Pk E: 0.81 MV Pk A: 0.93 E/A: 0.90 E'Medial: 4.57 E/E' Med: 17.80 E' Laterial: 4.03 E/E' Lat: 20.20 Right Ventricle TAPSE (mm): 22.80 TVS' Celso: 11.20 Tricuspid Valve TR Pk Celso: 2.61 TR Pk Grad: 27.00 RA Press: 3.00 RVSP: 30.00 Great Vessels Aorta Sinus of Valsalva: 3.10 2.0-3.5 cm Ao Asc: 3.20 2.1-3.4 cm Pulmonary Valve PV Pk Celso: 0.86 Peak PV Grad: 3.00 MN Pk Celso: 1.93 Updated in Other Vendor System with Status of Final Abdon Beaver MD electronically signed on 08/14/2024 4:08:05 PM with status of Final
--- NOTE | 2024-08-14 07:29 | P.PNIM_ITS ---
Subjective Subjective Date of Service: 08/14/24 Interval History: f/u on chest pain, concern for ACS on iv heparin, negative troponin i Physical Exam 2 Vital Signs: Vital Signs: Last Vital Signs Temp 98.5 F 08/14/24 04:10 Pulse 51 08/14/24 04:10 Resp 19 08/14/24 04:10 BP 135/56 L 08/14/24 04:10 Pulse Ox 96 08/14/24 04:10 O2 Del Method Room Air 08/14/24 04:10 BMI result Body Mass Index 22.6 Const: Other: General: AO X 3, no acute distress Resp: CTA bilateral CVS: S1,S2,RRR GI: +BS, NT, no distention Skin: No rash Neuro: motor grossly intact Psych: appropriate affect Objective Data Active Medications Acetaminophen (Acetaminophen 325 Mg Tablet) 650 mg PO Q6H PRN PRN Reason: Pain, Mild 1-3,fever,headache Calcium Carbonate (Calcium Carbonate 750 Mg Tab.Chew) 750 mg PO Q4H PRN PRN Reason: Heartburn Heparin Sodium (Porcine) (Heparin Sodium,Porcine 5,000 Unit/Ml Vial) 2,000 unit 40 unit/kg (2000 unit) IVPUSH PROTOCOL BOLUS PRN; Protocol PRN Reason: 40 unit/kg - Heparin Protocol Heparin Sodium (Porcine) (Heparin Sodium,Porcine 5,000 Unit/Ml Vial) 4,100 unit 80 unit/kg (4100 unit) IVPUSH PROTOCOL BOLUS PRN; Protocol PRN Reason: 80 unit/kg - Heparin Protocol Heparin Sodium/Sodium Chloride (Heparin Sodium,Porcine/1/2ns) 25,000 unit in 250 mls @ 0 mls/hr IVCONT .Q0M [facility]; Protocol Last Titration: 08/14/24 02:20 Dose: 10 units/kg/hr, 5.08 mls/hr Documented By: SEAN Co-signed By: IQRA Magnesium Hydroxide (Milk Of Magnesia 30 Ml Oral.Susp) 30 ml PO DAILY PRN PRN Reason: Constipation Melatonin (Melatonin 3 Mg Tablet) 6 mg PO BEDTIME PRN PRN Reason: Insomnia Ondansetron HCl (Ondansetron Hcl 4 Mg/2 Ml Vial) 4 mg IVPUSH Q8H PRN PRN Reason: Nausea and Vomiting Sodium Chloride (0.9 % Sodium Chloride Flush 3 Ml Syringe) 3 ml IVFLUSH QSHIFT [facility] Last Admin: 08/14/24 07:18 Dose: Not Given Documented By: SEAN Non-Admin Reason: IV Running Labs 08/14/24 04:33 08/14/24 04:33 Labs: Laboratory Results - last 24 hr 08/13/24 08/13/24 08/13/24 13:04 13:05 16:48 MCV 84.0 MCH 28.5 MCHC 33.9 RDW 12.7 Plt Count 247 MPV 9.9 Immature Gran % (Auto) 0.3 Neut % (Auto) 70.8 Lymph % (Auto) 17.6 L [place] % (Auto) 9.4 Eos % (Auto) 1.5 Baso % (Auto) 0.4 Lymph # (Auto) 1.3 [place] # (Auto) 0.7 Eos # (Auto) 0.1 Baso # (Auto) 0.0 Abs Immat Gran (auto) 0.02 Absolute Neuts (auto) 5.3 Absolute Nucleated RBC 0.000 Nucleated RBC % (auto) 0.0 PT 11.2 INR 1.0 APTT 25.4 L aPTT Heparin Protocol Anion Gap 8 L Estim Creat Clear Calc 25.5 Estimated GFR 43 Random Glucose 134 H Calcium 8.8 Total Bilirubin 0.7 AST 24 ALT 22 Alkaline Phosphatase 88 Troponin I High Sens < 2.7 < 2.7 B-Natriuretic Peptide 123 H Total Protein 6.8 Albumin 4.1 TSH 1.65 Influenza Type A (PCR) NEGATIVE Influenza Type B (PCR) NEGATIVE RSV RNA Qual (PCR) NEGATIVE SARS-CoV-2 RNA (RT-PCR) NEGATIVE 08/13/24 08/14/24 08/14/24 19:41 01:53 04:33 MCV 84.8 MCH 29.2 MCHC 34.4 RDW 12.9 Plt Count 221 MPV 9.9 Immature Gran % (Auto) Neut % (Auto) Lymph % (Auto) [place] % (Auto) Eos % (Auto) Baso % (Auto) Lymph # (Auto) [place] # (Auto) Eos # (Auto) Baso # (Auto) Abs Immat Gran (auto) Absolute Neuts (auto) Absolute Nucleated RBC 0.000 Nucleated RBC % (auto) 0.0 PT 12.3 INR 1.1 APTT aPTT Heparin Protocol 81.4 H Anion Gap 13 Estim Creat Clear Calc 29.9 Estimated GFR 52 Random Glucose 79 Calcium 8.9 Total Bilirubin AST ALT Alkaline Phosphatase Troponin I High Sens < 2.7 < 2.7 B-Natriuretic Peptide Total Protein Albumin TSH Influenza Type A (PCR) Influenza Type B (PCR) RSV RNA Qual (PCR) SARS-CoV-2 RNA (RT-PCR) Assessment and Plan (1) Chest pain: Status: Acute (2) Left bundle branch block: Status: Acute (3) ACS (acute coronary syndrome): Status: Acute Plan 78-year-old female with pertinent history of CVA, hypertension, mood disorder, hypothyroidism, overactive bladder who presents to the emergency department for evaluation of chest pain, LBBB and negative trops Chest pain, LBBB concerning for ACS, trops negative -continue IV heparin -BB defered to bradycardia, ASA 81 mg daily, Lipitor 40 mg daily -cardiology consult requested -echo to assess wall motion -repeat ECG this morning Mild hyperchloremic metabolic acidosis, resolved h/o CVA, no new symptoms -continue aspirin and statin Hypothyroidism -continue Synthroid Hypertension on Hydralazine and cardizem -hold cardizem, and possibly change to metoprolol -hold hydralazine for now as well Mood disorder: continue escitalopram and lorazepam PRN DVT prophylaxis: IV heparin Full code need for inpt: IV heparin for acute ACS Quality Stroke Does the patient have a stroke diagnosis?: No VTE Prior VTE?: No VTE Risk Level:: Medical - moderate - high VTE Device Contraindication: Treatment Not Indicated VTE Drug Contraindication: N/A - Med Ordered
--- NOTE | 2024-08-14 08:28 | PC.NURSE ---
Addendum entered by Emily Lockhart 08/14/24 09:08: Per Sia Pt is able to eat, no bed at [facility]. Addendum entered by Emily Lockhart 08/14/24 09:00: Dr. Paulson at bedside. Addendum entered by Emily Lockhart 08/14/24 08:55: Heparin running at 10 units/kg/hr, no rate change at this time. Provider Javy from cardiology at bedside. Original Note: Per provider Pati PO meds to be given at this time.
[2024-08-14 08:35] LABS: PTT Heparin Drip 55.9 SEC (53-77.9)
[2024-08-14] MEDS: Atorvastatin Calcium 40 MG TABLET PO (08:44)
[2024-08-14] MEDS: Escitalopram Oxalate 20 MG TABLET PO (08:44)
[2024-08-14] MEDS: Levothyroxine Sodium 75 MCG TABLET PO (08:44)
[2024-08-14] MEDS: Aspirin Enteric Coated 81 MG TABLET.DR PO (08:44)
[2024-08-14] MEDS: Acetaminophen 325 MG TABLET 650 MG PO ×2 (08:47→19:15)
--- NOTE | 2024-08-14 09:07 | PC.NURSE ---
Pt from home, reports waking up in the morning with left sided chest pain that was radiating up to the left lateral neck in the left shoulder, and right sided jaw pain. Pt also reported feeling generally fatigued. In the ED pt was noted to be bradycardic in the 40s (sinus), negative trops. ACS is being considered given higher risks, ambulation trial performed Pt HR did not exceed past 60. Per Cardiology Dr. Beaver, advises at this time to heparinize and admit for possible cath or pacemaker plans. Pt kept NPO after midnight 08/14/2024. Pt A&Ox3, ambulates independently with steady gait. 20G IV to R FA with Heparin at 10 units/kg/hr. 20G IV to L AC. Next PTT HD at 1420.
--- NOTE | 2024-08-14 09:40 | MHC.CM.PN ---
CM met with Patient at bedside in the ED and addressed IMM with her (original was given to Patient and a copy has been placed on the chart). Patient lives alone in a house and required no services nor DME [employer]ITTING [employer]STRATOR. Patient's goal is home/self care and CM has initiated and will follow for dc planning. PCP is Dr. Yany Williamson and one of Patient's children will transport to home. HCP is Son/Manish.
--- NOTE | 2024-08-14 09:50 | PC.NURSE ---
Assumed care of this patient at 0900, patient resting quietly on stretcher at this time. Heparin gtt running @ 10 units/kg, PTT to be checked next at 1420, endorses mild jaw pain at this time. Currently admitted, waiting for bed upstairs.
[2024-08-14 10:09] LABS: Erythrocyte Sedimentation Rate 5 MM/HR (0-20)
--- NOTE | 2024-08-14 10:21 | PM.CNCAR ---
History of Present Illness History of Present Illness Date of Service: 08/14/24 Requesting physician: Geovani Humphrey Chief complaint: Chest pain, LBBB, junctional rhythm Narrative: 78-year-old female who is presenting with jaw pain, chest discomfort, neck and arm discomfort. She said over the last 2 days she started experiencing some jaw pain. She said she went to bed day before yesterday with jaw discomfort and then woke up in the middle overnight with chest tightness arm discomfort and neck discomfort. This were persistent symptoms for hours and then she eventually came to the emergency department. Her initial EKGs showed junctional rhythm at heart rate of 48 with left bundle-branch block. She was ambulated with improvement in heart rate without any long pauses and she was not hypotensive. Biomarkers were negative. Given story concerning for ACS also she was started on heparin drip. Today morning she was seen at bedside. She is denying any chest discomfort or jaw discomfort now. Her ECGs back to sinus bradycardia 54 beats per minute with narrow complex rhythm at this point. No dynamic EKG changes currently. No bleeding concerns. She was on diltiazem 120 mg which has been held. She has background of hypertension. She was taking baby aspirin previously without any bleeding concerns. [facility] Past Medical History Medical History (Updated 08/14/24 @ 14:27 by Abdon Beaver MD) Glaucoma Dysarthria Cerebrovascular accident Hypertension Surgical History Surgical History (Updated 08/14/24 @ 13:09 by Angie Barnhart RN) Hx of breast reduction, elective Social History Social History Household Members: None Household Members Other:: dog Housing: House Do you presently have visiting nurse or other home services: No Patient Tobacco Use Status: Former Tobacco user Substance Use Type: Marijuana service: No Meds Allergies Allergy/AdvReac Type Severity Reaction Status Date / Time No Known Allergies Allergy Verified 08/13/24 12:39 Active Medications: Current Medications Acetaminophen (Acetaminophen 325 Mg Tablet) 650 mg PO Q6H PRN PRN Reason: Pain, Mild 1-3,fever,headache Last Admin: 08/14/24 08:47 Dose: 650 mg Aspirin (Aspirin Enteric Coated 81 Mg Tablet.Dr) 81 mg PO DAILY MARIANA Last Admin: 08/14/24 08:44 Dose: 81 mg Atorvastatin Calcium (Atorvastatin Calcium 40 Mg Tablet) 40 mg PO DAILY [facility] Last Admin: 08/14/24 08:44 Dose: 40 mg Calcium Carbonate (Calcium Carbonate 750 Mg Tab.Chew) 750 mg PO Q4H PRN PRN Reason: Heartburn Escitalopram Oxalate (Escitalopram Oxalate 20 Mg Tablet) 20 mg PO DAILY [facility] Last Admin: 08/14/24 08:44 Dose: 20 mg Heparin Sodium (Porcine) (Heparin Sodium,Porcine 5,000 Unit/Ml Vial) 2,000 unit 40 unit/kg (2000 unit) IVPUSH PROTOCOL BOLUS PRN; Protocol PRN Reason: 40 unit/kg - Heparin Protocol Heparin Sodium (Porcine) (Heparin Sodium,Porcine 5,000 Unit/Ml Vial) 4,100 unit 80 unit/kg (4100 unit) IVPUSH PROTOCOL BOLUS PRN; Protocol PRN Reason: 80 unit/kg - Heparin Protocol Heparin Sodium/Sodium Chloride (Heparin Sodium,Porcine/1/2ns) 25,000 unit in 250 mls @ 0 mls/hr IVCONT .Q0M [facility]; Protocol Last Titration: 08/14/24 08:20 Dose: 10 units/kg/hr, 5.08 mls/hr Levothyroxine Sodium (Levothyroxine Sodium 75 Mcg Tablet) 75 mcg PO DAILY@0600 [facility] Last Admin: 08/14/24 08:44 Dose: 75 mcg Lorazepam (Lorazepam 0.5 Mg Tablet) 0.5 mg PO DAILY PRN PRN Reason: Anxiety Magnesium Hydroxide (Milk Of Magnesia 30 Ml Oral.Susp) 30 ml PO DAILY PRN PRN Reason: Constipation Melatonin (Melatonin 3 Mg Tablet) 6 mg PO BEDTIME PRN PRN Reason: Insomnia Non-Formulary Medication (Bimatoprost [Lumigan]) 1 drop EYE-BOTH BEDTIME [facility] Ondansetron HCl (Ondansetron Hcl 4 Mg/2 Ml Vial) 4 mg IVPUSH Q8H PRN PRN Reason: Nausea and Vomiting Sodium Chloride (0.9 % Sodium Chloride Flush 3 Ml Syringe) 3 ml IVFLUSH QSHIFT [facility] Last Admin: 08/14/24 07:18 Dose: Not Given Home Medications ?Medication ?Instructions ?Recorded ?Confirmed ?Last Taken ?Type bimatoprost 0.01 % eye drops 1 drp ophthalmic (eye) BEDTIME 08/21/23 08/13/24 08/13/24 History (Lumigan) diltiazem HCl 120 mg 120 mg PO DAILY 08/21/23 08/13/24 08/13/24 History capsule,extended release 24 hr escitalopram oxalate 20 mg tablet 20 mg PO DAILY 08/21/23 08/13/24 08/13/24 History levothyroxine 75 mcg tablet 75 mcg PO DAILY 08/21/23 08/13/24 08/13/24 History lorazepam 0.5 mg tablet 0.5 mg PO DAILY PRN Anxiety 08/21/23 08/13/24 Unknown History atorvastatin 10 mg tablet 40 mg PO DAILY 08/13/24 08/13/24 08/13/24 History Physical Exam Vital Signs: Vital Signs: Last Vital Signs Temp 97.9 F 08/14/24 08:42 Pulse 65 08/14/24 08:42 Resp 16 08/14/24 08:42 BP 148/76 H 08/14/24 08:42 Pulse Ox 96 08/14/24 08:42 O2 Del Method Room Air 08/14/24 08:42 BMI result Body Mass Index 22.6 GENERAL APPEARANCE: in no acute distress, pleasant. NECK: no carotid bruit, no jugular venous distention. SKIN: no suspicious lesions, warm and dry. HEART: no murmurs, regular rate and rhythm. LUNGS: clear to auscultation bilaterally. ABDOMEN: soft, nontender. EXTREMITIES: no edema. PERIPHERAL PULSES: equal. NEUROLOGIC: No gross deficits, AAO X 3 Objective Labs and Meds 08/14/24 04:33 08/14/24 04:33 Lab results: Laboratory Results - last 24 hr 08/13/24 08/13/24 08/13/24 13:04 13:05 16:48 WBC 7.5 RBC 4.74 Hgb 13.5 Hct 39.8 MCV 84.0 MCH 28.5 MCHC 33.9 RDW 12.7 Plt Count 247 MPV 9.9 Immature Gran % (Auto) 0.3 Neut % (Auto) 70.8 Lymph % (Auto) 17.6 L Stone % (Auto) 9.4 Eos % (Auto) 1.5 Baso % (Auto) 0.4 Lymph # (Auto) 1.3 Stone # (Auto) 0.7 Eos # (Auto) 0.1 Baso # (Auto) 0.0 Abs Immat Gran (auto) 0.02 Absolute Neuts (auto) 5.3 Absolute Nucleated RBC 0.000 Nucleated RBC % (auto) 0.0 ESR PT 11.2 INR 1.0 APTT 25.4 L aPTT Heparin Protocol Sodium 141 Potassium 4.1 Chloride 113 H Carbon Dioxide 24 Anion Gap 8 L BUN 22 H Creatinine 1.20 Estim Creat Clear Calc 25.5 Estimated GFR 43 Random Glucose 134 H Calcium 8.8 Total Bilirubin 0.7 AST 24 ALT 22 Alkaline Phosphatase 88 Troponin I High Sens < 2.7 < 2.7 B-Natriuretic Peptide 123 H Total Protein 6.8 Albumin 4.1 TSH 1.65 Influenza Type A (PCR) NEGATIVE Influenza Type B (PCR) NEGATIVE RSV RNA Qual (PCR) NEGATIVE SARS-CoV-2 RNA (RT-PCR) NEGATIVE 08/13/24 08/14/24 08/14/24 19:41 01:53 04:33 WBC 9.5 RBC 4.35 Hgb 12.7 Hct 36.9 L MCV 84.8 MCH 29.2 MCHC 34.4 RDW 12.9 Plt Count 221 MPV 9.9 Immature Gran % (Auto) Neut % (Auto) Lymph % (Auto) Stone % (Auto) Eos % (Auto) Baso % (Auto) Lymph # (Auto) Stone # (Auto) Eos # (Auto) Baso # (Auto) Abs Immat Gran (auto) Absolute Neuts (auto) Absolute Nucleated RBC 0.000 Nucleated RBC % (auto) 0.0 ESR 5 PT 12.3 INR 1.1 APTT aPTT Heparin Protocol 81.4 H Sodium 142 Potassium 3.7 Chloride 113 H Carbon Dioxide 20 L Anion Gap 13 BUN 20 H Creatinine 1.02 Estim Creat Clear Calc 29.9 Estimated GFR 52 Random Glucose 79 Calcium 8.9 Total Bilirubin AST ALT Alkaline Phosphatase Troponin I High Sens < 2.7 < 2.7 B-Natriuretic Peptide Total Protein Albumin TSH Influenza Type A (PCR) Influenza Type B (PCR) RSV RNA Qual (PCR) SARS-CoV-2 RNA (RT-PCR) 08/14/24 08:18 WBC RBC Hgb Hct MCV MCH MCHC RDW Plt Count MPV Immature Gran % (Auto) Neut % (Auto) Lymph % (Auto) Stone % (Auto) Eos % (Auto) Baso % (Auto) Lymph # (Auto) Stone # (Auto) Eos # (Auto) Baso # (Auto) Abs Immat Gran (auto) Absolute Neuts (auto) Absolute Nucleated RBC Nucleated RBC % (auto) ESR PT INR APTT aPTT Heparin Protocol 55.9 D Sodium Potassium Chloride Carbon Dioxide Anion Gap BUN Creatinine Estim Creat Clear Calc Estimated GFR Random Glucose Calcium Total Bilirubin AST ALT Alkaline Phosphatase Troponin I High Sens B-Natriuretic Peptide Total Protein Albumin TSH Influenza Type A (PCR) Influenza Type B (PCR) RSV RNA Qual (PCR) SARS-CoV-2 RNA (RT-PCR) Imaging Radiologist's impression: Impressions Chest X-Ray 08/13/24 12:40 IMPRESSION: No active pulmonary disease. Electronically signed by: Jabari Burgos MD 08/13/2024 12:59 PM [facility] Assessment and Plan (1) ACS (acute coronary syndrome): Status: Acute (2) Left bundle branch block: Status: Acute (3) Bradycardia: Status: Acute Plan Pleasant 78-year-old female presenting for jaw discomfort, chest discomfort, neck and arm discomfort ongoing for many hours before presentation. Her initial EKGs showed junctional rhythm with left bundle-branch block. This was an obvious change compared to previous EKGs. She did not have any biomarker rise. She was started on heparin drip given symptoms and interestingly her symptoms have improved and she is back in a narrow complex rhythm at this point. Difficult to say whether the junctional rhythm was the cause for her symptoms but she was not hypotensive. Given her age and presentation underlying coronary disease is a possibility. I had a detailed discussion with the patient about this. We have decided to transfer to [facility] to undergo diagnostic angiography. We will arrange this for tomorrow. She will potentially be transferred today. In terms of the bradycardic episode on admission with junctional rhythm and left bundle-branch block-I have discussed the case with my colleague in electrophysiology who will see her as she gets transferred to [facility]. We will see whether this warrants permanent pacemaker placement in this 78-year-old lady. Continue heparin drip as before. Continue baby aspirin and atorvastatin. Diltiazem should not be resumed. Can add amlodipine 2.5 mg daily for blood pressure control for now. Avoid hydralazine. Thank you for allowing me to participate in the care of your patient. Please feel free to contact me if you have any questions. Procedures Date of Service Date of Service: 08/14/24
--- NOTE | 2024-08-14 13:08 | P.DS_ITS ---
DS: Providers Provider Date of Service: 08/14/24 Date of admission: 08/13/24 19:58 Date of discharge: 08/14/24 Primary care physician: Yany Williamson MD Consults: 08/13/24 19:58 Consult to Cardiology Routine Consulting Provider: [facility] Reason for consultation: chest pain Has provider been notified: Yes DS: Diagnosis Discharge Diagnosis (1) Chest pain: Status: Acute (2) Left bundle branch block: Status: Acute (3) ACS (acute coronary syndrome): Status: Acute DS: Summary Hospital Course Hospital Course: admission hpi Chief Complaint: Chest pain This is a 78-year-old female with pertinent history of CVA, hypertension, mood disorder, hypothyroidism, overactive bladder who presents to the emergency department for evaluation of chest pain. Patient states it was sudden onset last night about 04:00 when she was sleeping. It was midsternal and radiated to the jaw and left arm. It lasted for about 2 hours and subsided on its own. No aggravating or relieving factors. No associated sweating, nausea or vomiting. Also had similar chest discomfort on the day of presentation which did not increase with exertion. Patient states she feels tired. Denies symptoms of gastroesophageal reflux disease. No fever, chills, cough, shortness of breath, abdominal pain, changes in urinary or bowel habits. In the emergency department, EKG with left bundle branch block. Troponin within normal limits. Cardiology was consulted who requested IV heparin Hospital course: The patient presented with chest pain and jaw pain. Her initial ECG showed a junctional rhythm with a heart rate of 48 and left bundle branch block. Her h eart rate improved after ambulation. Cardiac biomarkers were negative. She has been treated with IV heparin, aspirin, and atorvastatin. Cardiology recommends cardiac catheterization for further risk stratification given the high concern for acute coronary syndrome (ACS). Beta blockers were avoided due to bradycardia with the junctional rhythm. She is on cardizem at home for hypertension, which is currently on hold. Please refer to the accompanying ECGs for further evaluation. Time Attestation Discharge Coordination Time (in mins): 45 Quality: Safe Use of Opioids Does Pt have an Active Cancer Diagnosis on the Problem List?: No Quality: Stroke Does the patient have a stroke diagnosis?: No Physical Exam Vital Signs: Vital Signs: Last Vital Signs Temp 97.9 F 08/14/24 08:42 Pulse 65 08/14/24 08:42 Resp 16 08/14/24 08:42 BP 148/76 H 08/14/24 08:42 Pulse Ox 96 08/14/24 08:42 O2 Del Method Room Air 08/14/24 08:42 BMI result Body Mass Index 22.6 Const: Other: General: AO X 3, no acute distress Resp: CTA bilateral CVS: S1,S2,RRR GI: +BS, NT, no distention Skin: No rash Neuro: motor grossly intact Psych: appropriate affect DS: Data Data Completed and Pending Labs on day of discharge: Laboratory Results - last 24 hr 08/13/24 08/13/24 08/13/24 13:04 13:05 16:48 WBC 7.5 RBC 4.74 Hgb 13.5 Hct 39.8 MCV 84.0 MCH 28.5 MCHC 33.9 RDW 12.7 Plt Count 247 MPV 9.9 Immature Gran % (Auto) 0.3 Neut % (Auto) 70.8 Lymph % (Auto) 17.6 L [place] % (Auto) 9.4 Eos % (Auto) 1.5 Baso % (Auto) 0.4 Lymph # (Auto) 1.3 [place] # (Auto) 0.7 Eos # (Auto) 0.1 Baso # (Auto) 0.0 Abs Immat Gran (auto) 0.02 Absolute Neuts (auto) 5.3 Absolute Nucleated RBC 0.000 Nucleated RBC % (auto) 0.0 ESR PT 11.2 INR 1.0 APTT 25.4 L aPTT Heparin Protocol Sodium 141 Potassium 4.1 Chloride 113 H Carbon Dioxide 24 Anion Gap 8 L BUN 22 H Creatinine 1.20 Estim Creat Clear Calc 25.5 Estimated GFR 43 Random Glucose 134 H Calcium 8.8 Total Bilirubin 0.7 AST 24 ALT 22 Alkaline Phosphatase 88 Troponin I High Sens < 2.7 < 2.7 B-Natriuretic Peptide 123 H Total Protein 6.8 Albumin 4.1 TSH 1.65 Influenza Type A (PCR) NEGATIVE Influenza Type B (PCR) NEGATIVE RSV RNA Qual (PCR) NEGATIVE SARS-CoV-2 RNA (RT-PCR) NEGATIVE 08/13/24 08/14/24 08/14/24 19:41 01:53 04:33 WBC 9.5 RBC 4.35 Hgb 12.7 Hct 36.9 L MCV 84.8 MCH 29.2 MCHC 34.4 RDW 12.9 Plt Count 221 MPV 9.9 Immature Gran % (Auto) Neut % (Auto) Lymph % (Auto) [place] % (Auto) Eos % (Auto) Baso % (Auto) Lymph # (Auto) [place] # (Auto) Eos # (Auto) Baso # (Auto) Abs Immat Gran (auto) Absolute Neuts (auto) Absolute Nucleated RBC 0.000 Nucleated RBC % (auto) 0.0 ESR 5 PT 12.3 INR 1.1 APTT aPTT Heparin Protocol 81.4 H Sodium 142 Potassium 3.7 Chloride 113 H Carbon Dioxide 20 L Anion Gap 13 BUN 20 H Creatinine 1.02 Estim Creat Clear Calc 29.9 Estimated GFR 52 Random Glucose 79 Calcium 8.9 Total Bilirubin AST ALT Alkaline Phosphatase Troponin I High Sens < 2.7 < 2.7 B-Natriuretic Peptide Total Protein Albumin TSH Influenza Type A (PCR) Influenza Type B (PCR) RSV RNA Qual (PCR) SARS-CoV-2 RNA (RT-PCR) 08/14/24 08:18 WBC RBC Hgb Hct MCV MCH MCHC RDW Plt Count MPV Immature Gran % (Auto) Neut % (Auto) Lymph % (Auto) [place] % (Auto) Eos % (Auto) Baso % (Auto) Lymph # (Auto) [place] # (Auto) Eos # (Auto) Baso # (Auto) Abs Immat Gran (auto) Absolute Neuts (auto) Absolute Nucleated RBC Nucleated RBC % (auto) ESR PT INR APTT aPTT Heparin Protocol 55.9 D Sodium Potassium Chloride Carbon Dioxide Anion Gap BUN Creatinine Estim Creat Clear Calc Estimated GFR Random Glucose Calcium Total Bilirubin AST ALT Alkaline Phosphatase Troponin I High Sens B-Natriuretic Peptide Total Protein Albumin TSH Influenza Type A (PCR) Influenza Type B (PCR) RSV RNA Qual (PCR) SARS-CoV-2 RNA (RT-PCR) Discharge Plan Discharge Anticipated Discharge Date/Time: 08/14/24 13:03 Patient Disposition: Xfer Inpatient Rehab Fac Discharge Diagnosis: ACS, chest pain, LBBB Referrals: [facility] [Outside] - 1 Week Yany Williamson MD [Primary Care Provider] - 1 Week Discharge Medications: New heparin(porcine) in 0.45% NaCl 25,000 unit/250 mL Parenteral Solution 25,000 unit continuous IV infusion .Q0M Qty: 6000 0RF Rx Instructions: Follow heparin drip protocol Continued levothyroxine 75 mcg tablet 75 mcg PO DAILY lorazepam 0.5 mg tablet 0.5 mg PO DAILY PRN (Reason: Anxiety) diltiazem HCl 120 mg capsule,extended release 24hr 120 mg PO DAILY escitalopram oxalate 20 mg tablet 20 mg PO DAILY Lumigan 0.01 % drops 1 drp ophthalmic (eye) BEDTIME hydralazine 25 mg Tablet 25 mg PO TID Qty: 90 0RF Protocol: Hold for SBP< HOLD for SBP < : 90 aspirin 81 mg Tablet,Delayed Release (Dr/Ec) 81 mg PO DAILY Qty: 30 0RF atorvastatin 10 mg tablet 40 mg PO DAILY Discharge Orders: Discharge Order (Routine); Ordered 08/14/24 Ordered By: Geovani Humphrey Diet: Advance to usual diet Activity on Discharge: As tolerated Stand Alone Forms: Patient Portal Discharge page Print Language: Kyrgyz Care Plan Goals: Transfer to [facility] for cardiac cath Health Concerns: chest pain, ECG changes, Plan of Treatment: transfer to [facility] for cardiac cath continue aspirin, lipitor Assessment: see above
--- NOTE | 2024-08-14 13:11 | MHC.CM.PN ---
Patient will be transferred to [facility].
[2024-08-14] MEDS: Heparin Sodium,Porcine 5,000 UNIT/ML VIAL 2000 UNIT IVPUSH (15:32)
[2024-08-14 21:39] LABS: PTT Heparin Drip 72.9 SEC (53-77.9)
== END 2024-08-14 22:45 | disposition short-term general hospital (02) | DRG 311 ==
LOC: HO.ED 18:20 → HO.EDOVER 20:27
PROVIDERS: Nurse Practitioner Family; Physician Assistant; Admitting Provider Student in an Organized Health Care Education/Training Program; Emergency Provider Internal Medicine; PCP Family Medicine; Visit Provider Internal Medicine
DX: I24.9 Acute ischemic heart disease, unspecified (principal); I49.2 Junctional premature depolarization; E03.9 Hypothyroidism, unspecified; I44.7 Left bundle-branch block, unspecified; I10 Essential (primary) hypertension; F39 Unspecified mood [affective] disorder; N32.81 Overactive bladder; Z20.822 Contact with and (suspected) exposure to COVID-19; Z86.73 Personal history of transient ischemic attack (TIA), and cerebral infarction without residual deficits; Z79.82 Long term (current) use of aspirin; Z79.890 Hormone replacement therapy; Z79.899 Other long term (current) drug therapy
CPT/HCPCS: 0241U; 36415; 71046; 80048; 80053; 83880; 84443; 84484; 85025; 85027; 85610; 85652; 85730; 93005; 93306; 99285; J0131; J1644; Q9957

== ENCOUNTER → 2024-08-13 12:27 | Outpatient (BNV) | payer MEDICARE, OTHER, SELFPAY | PROVIDERS: PCP Family Medicine; Visit Provider Internal Medicine Cardiovascular Disease | DX: R94.31 Abnormal electrocardiogram [ECG] [EKG] (principal) | CPT/HCPCS: 93010 ==

== ENCOUNTER → 2024-08-13 12:40 | Outpatient (BNV) | payer MEDICARE, OTHER, SELFPAY | PROVIDERS: PCP Family Medicine; Visit Provider Radiology Diagnostic Radiology | DX: R07.9 Chest pain, unspecified (principal) | CPT/HCPCS: 71046 ==

== ENCOUNTER → 2024-08-13 13:06 | Outpatient (BNV) | payer MEDICARE, OTHER, SELFPAY | PROVIDERS: Emergency Provider Internal Medicine; PCP Family Medicine; Visit Provider Student in an Organized Health Care Education/Training Program | DX: R07.9 Chest pain, unspecified (principal); I24.9 Acute ischemic heart disease, unspecified | CPT/HCPCS: 99222 ==

== ENCOUNTER 2024-08-13 19:58 | Outpatient (BNV) | payer MEDICARE, OTHER, SELFPAY | END 2024-08-14 07:00 | PROVIDERS: Admitting Provider Student in an Organized Health Care Education/Training Program; Emergency Provider Internal Medicine; PCP Family Medicine; Visit Provider Internal Medicine Cardiovascular Disease | DX: R00.1 Bradycardia, unspecified (principal) | CPT/HCPCS: 93010; 93306 ==

== ENCOUNTER → 2024-08-13 19:58 | Outpatient (BNV) | payer MEDICARE, OTHER, SELFPAY | PROVIDERS: Admitting Provider Student in an Organized Health Care Education/Training Program; Emergency Provider Internal Medicine; PCP Family Medicine; Visit Provider Internal Medicine Cardiovascular Disease | DX: I24.9 Acute ischemic heart disease, unspecified (principal); I44.7 Left bundle-branch block, unspecified; R00.1 Bradycardia, unspecified | CPT/HCPCS: 99223 ==

== ENCOUNTER 2024-08-27 14:26 | Outpatient (AMB) | payer MEDICARE, OTHER, SELFPAY ==
[2024-08-27 14:28] VITALS: BP 100/54; PULSE 65; BMI 23.7
--- NOTE | 2024-08-27 14:28 | MHC.OFFVIS ---
Vital Signs 08/27/24 14:28 Height 4 ft 11 in Weight 117 lb 4.575 oz BMI 23.7 BP 100/54 L Blood Pressure Location Lt brachial Position Sitting Pulse 65 Pulse Source Pulse Oximeter Intake Visit Reasons: 2wk f/up cath Manager Of Selection And Assessment Required: No Accompanied by: Self / Same As Patient Allergies No Known Allergies Allergy (Verified 08/13/24 12:39) Medication List - Last Reconciled 08/27/24 by Juan Ervin NP amlodipine 5 mg PO DAILY aspirin 81 mg PO DAILY atorvastatin 80 mg PO DAILY bimatoprost 0.01% (Lumigan) 1 drp ophthalmic (eye) BEDTIME cholecalciferol (vitamin D3) 25 mcg PO DAILY escitalopram oxalate 20 mg PO DAILY hydralazine 25 mg See Protocol PO TID levothyroxine 75 mcg PO DAILY lorazepam 0.5 mg PO DAILY PRN multivitamin 1 tab PO DAILY vibegron (Gemtesa) 75 mg PO DAILY HPI Comments Details: This is an 78-year-old female patient presenting for a hospital discharge follow-up. The patient has a history of hyperlipidemia and hypertension. She was recently admitted due to chest pain radiating to her back in the arms, along with some right-sided jaw discomfort. In the emergency room, her EKG showed a junctional rhythm at 48 beats per minute with a left bundle branch block with that was new. Biomarkers were negative. Given her presentation and family history of cardiac disease, patient was started on heparin drip and transferred to [facility] for cardiac catheterization. The patient was also evaluated by an EP for possible pacemaker placement at [facility]. In addition, her medication regimen was adjusted she was switched amlodipine 5 mg and diltiazem was discontinued. During her hospital stay, the patient received IV penicillin for periodontitis. Following discharge, she followed up with a dentist, who recommended to this reaction. Today, the patient reports complete resolution of her symptoms and denies any exertional chest pain, shortness of breath, palpitations, dizziness, orthopnea, PND, leg edema, presyncope, or syncope. [facility] Medical History (Updated 08/27/24 @ 15:32 by Juan Ervin NP) Hypertension Glaucoma Dysarthria Cerebrovascular accident Surgical History Hx of cardiac cath Hx of breast reduction, elective Family History Father Kidney disease Mother HTN (hypertension) Heart disease Maternal Grandfather Heart disease Social History Household Members: None Household Members Other:: dog Housing: House Do you presently have visiting nurse or other home services: No Alcohol intake: current Alcohol intake frequency: holidays/special occasions only Patient Tobacco Use Status: Former Tobacco user Substance Use Type: Marijuana service: No Review of Systems Const Denies chills, Denies fatigue, Denies fever(s), Denies weight gain and Denies weight loss ENT Denies dizziness Card Denies chest pain, Denies leg edema, Denies lightheadedness, Denies palpitations, Denies dyspnea on exertion, Denies orthopnea and Denies other Resp Denies cough and Denies dyspnea on exertion GI Denies hematochezia and Denies change in stool character Musc Denies abnormal gait, Denies muscle weakness, Denies numbness, Denies radiating pain into limb and Denies tingling Neuro Denies abnormal gait, Denies dizziness, Denies numbness and Denies tingling Endo Denies fatigue and Denies palpitations Physical Exam Vital Signs: Last Vital Signs Pulse 65 08/27/24 14:28 BP 100/54 L 08/27/24 14:28 BMI result Body Mass Index 23.7 Const General: cooperative, healthy appearing, comfortable and no acute distress Orientation/consciousness: patient oriented x3 HEENT Head: Yes normal to inspection Neck Neck: Yes normal visual inspection, Yes trachea midline and Yes supple Chest Chest palpation & inspection: normal inspection of the chest Resp Effort & Inspection: normal respiratory effort Auscultation: clear to auscultation bilaterally, no crackles, no rales, no rhonchi and no wheezes Cardio Jugular venous distension: no JVD Palpation: normal PMI Rate: regular rate Rhythm: regular rhythm Heart sounds: S1 normal heart sound present, S2 normal heart sound present, no click, no gallops, no murmurs and no rubs Peripheral pulses: Peripheral pulses 2+ throughout GI Inspection: Yes normal to inspection Palpation (GI): Soft to palpation Auscultation: normal bowel sounds Skin General skin exam: no rashes or lesions noted Neuro General: patient oriented x3 Extrem General: Yes normal to inspection, No no pedal edema and No calf tenderness Psych Appearance: grossly normal Mental Status: mental status grossly normal Speech and movement: Normal speech and movement present Assessment & Plan Assessment & Plan (1) CAD (coronary artery disease): Code(s): I25.10 - Atherosclerotic heart disease of [place] coronary artery without angina pectoris Category: Medical Plan: 08/14/2024- echo showed a normal EF 55-60%, akinetic basal inferior segment, moderate plaque in the arch. 08/15/2024-cardiac catheterization revealed proximal LAD 65% stenosis with [id number] calcification, minimal disease in the RCA. Continue aspirin therapy. Continue statin therapy. Last LDL 62, ideally her LDL goal less than 70. (2) Left bundle branch block: Code(s): I44.7 - Left bundle-branch block, unspecified Category: Medical Plan: During the hospital stay patient had no episodes of junctional rhythm with left bundle branch block and therefore EP is holding off on pacemaker placement. We will obtain a Holter per recommendation. (3) Bradycardia: Code(s): R00.1 - Bradycardia, unspecified Category: Medical Plan: As above. Heart rate today is 65. (4) Hypertension: Code(s): I10 - Essential (primary) hypertension Category: Medical Plan: Blood pressure today soft at 100/54. States blood pressures have been stable at home. For now continue amlodipine. (5) Hospital discharge follow-up: Code(s): Z09 - Encounter for follow-up examination after completed treatment for conditions other than malignant neoplasm Plan: Recommended heart healthy diet, regular exercise, blood pressure management and cholesterol management. Patient will follow-up in the office. In the interim, patient will call us with any concerns. Discussed in detail red flags for angina and to seek ER care at that time. This note was generated using voice recognition software. While every effort has been made to ensure accuracy and proper manager credit collections, there may be occasional errors that could affect the content or meaning of the described symptoms. Orders: Orders ECG 7 day holter monitor Today I44.7 - Left bundle-branch block, unspecified, R00.1 - Bradycardia, unspecified Medications: New amlodipine 5 mg PO DAILY 90 tabs 3RF Coding Level of Care Code Est Pt Level 4 (06975) Diagnoses CAD (coronary artery disease) I25.10 Left bundle branch block I44.7 Bradycardia R00.1 Hypertension I10 Hospital discharge follow-up Z09 Time Spent (min) 31 Comment Time spent in reviewing the chart, test results, assessment, counseling and documentation.
--- OUTSIDE RECORDS SUMMARY | 2024-08-27 15:20 | XMS_ITS ---
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+ Medications Medication SIG (Take, Route, Frequency, Duration) Notes Start Date End Date Status Vitamin C 500 MG as directed Orally Active Gemtesa 75 MG 1 tablet Orally Once a day for 30 day(s) Active Claritin 10 MG 1 tablet Orally Once a day for 30 day(s) Active Turmeric 500 MG as directed Orally Active Simvastatin 20MG 1 ORAL daily for -3 09/26/2011 Active Cartia XT 1 capsule Orally Onc e a day Active Lumigan Active iron 1 tab Oral Active Multi-Vitamin Daily - 1 tablet Orally On ce a day Active Escitalopram Oxalate 20 MG TAKE 1 TABLET BY MOUTH EVERY DAY Oral for 90 Active LORazepam 0.5 MG 1 tablet as needed O rally as needed Active Fish Oil 1200MG 1 ORAL daily for -3 06/25/2013 Active Levoxyl 50MCG 1 ORAL daily for -3 11/30/2011 Active Social History Tobacco Use: Social History Observation Description Date Details (start date - stop date) Former Smoker NA - NA Tobacco Use/Smoking Question Answer Notes Are you a former smoker How long has it been since you last smoked? > 10 years Tobacco use other than smoking: Question Answer Notes Are you an other tobacco user? No Vital Signs Temperature 96.9 degrees Fahrenheit 06/29/20 23 Blood pressure systolic 150 mm Hg 06/29/20 23 Blood pressure diastolic 84 mm Hg 023 Height 59 in 06/29/2023 Weight 132 lbs 06/29/2023 BMI 26.66 kg/m2 06/29/2023 Encounters Encounter Location Date Provider Diagnosis Total [facility] [address] [place] [address] 06/29/2023 Anahy Gonzalezanueva Encounter for screening mammogram for malignant neoplasm of breast Z12.31 ; Other specified disorders of bone density and structure, multiple sites M85.89 ; Postmenopausal atrophic vaginitis N95.2 and Encounter for gynecological examination (general) (routine) without abnormal findings Z01.419 Assessments Encounter Date Diagnosis (ICD Code) Assessment Notes Treatment Notes Treatment Clinical Notes Section Notes 06/29/2023 Encounter for screening mammogram for malignant neoplasm of breast (ICD-10 - Z12.31) REGULAR MAMMOGRAMS AND SBE'S WERE RECOMMENDED. 06/29/2023 Other specified disorders of bone density and structure, multiple sites (ICD-10 - M85.89) DISCUSSED HER LATEST BMD AND OSTEOPENIA AND ITS IMPACT ON HER HEALTH. ADEQUATE CALCIUM AND VIT D. WEIGHT BEARING EXERCISES. REPEAT BMD IN 2023. 06/29/2023 Postmenopausal atrophic vaginitis (ICD-10 - N95.2) DISCUSSED FINDINGS, DX AND TX OPTIONS. PAT IS ASYMPTOMATIC. 06/29/2023 Encounter for gynecological examination (general) (routine) without abnormal findings (ICD-10 - Z01.419) NO MORE PAP TESTS. Plan Of Treatment Treatment Notes Assessment Notes Encounter for screening mamm ogram for malignant neoplasm of breast REGULAR MAMMOGRAMS AND SBE'S WERE RECOMMENDED. Other specified disorders of bone density and structure, multiple sites DISCUSSED HER LATEST BMD AND OSTEOPENIA AND ITS IMPACT ON HER HEALTH. ADEQUATE CALCIUM AND VIT D. WEIGHT BEARING EXERCISES. REPEAT BMD IN 2023. Postmenopausal atrophic vaginitis DISCUSSED FINDINGS, DX AND TX OPTIONS. PAT IS ASYMPTOMATIC. Encounter for gynecological examination (general) (routine) without abnormal findings NO MORE PAP TESTS. Pending Test Test Name Order Date MAMMOGRAM, SCREENING 06/29/2023 BONE DENSITY 06/29/2023 MM Digital Mammo Screening 06/29/2023 Next Appt Details Follow Up: 2 YEARS OR Dejan BARRERA: Provider Name:Anahy lion, 07/10/2025 10:20:00 AM, [address], [address], [place], [address], Progress Notes * LESLIE CHAPADOB:1945 (77 yo F)Acc No.[id number]:06/29/2023 PROGRESS NOTES Patient:LESLIE NORRIS Appointment Provider:?Anahy lion M.D. 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 PAT ENTERED MENOPAUSE IN HER 50'S. SHE HAD BEEN FOR MORE THAN 40 YEARS AND HAD ANOTHER PARTNER WHO 12 YEARS AGO. SHE IS NOT SEXUALLY ACTIVE. ?S/P BILATERAL BREAST REDUCTION. S/P BLADDER SLING SURGERY FOR INCONTINENCE. ?HER LAST MAMMOGRAM DONE IN MAY 2023 SHOWED BREASTS ARE NOT DENSE AND WAS NORMAL. ?HER LAST PAP TEST IN 2017 WAS NEGATIVE AND HPV NEGATIVE. ?HER LAST BMD IN 2021 SHOWED IMPROVEMENT FROM T-SCORE OF -2.3 IN 2020 TO - 2.0 AT THE FEMORAL NECK IN 2021. FRAX=15%/4.0%. ?SHE HAD A COLONOSCOPY DONE IN 2013. ?MODERNA X 3. ???Annual:? Patient presents for annual exam, ages 60-85, postmenopausal. ?General Health Maintenance:?Current breast complaints:?no breast pain, mass, discharge, or skin changes ?Urinary problems:?patient reports no urinary health problems or bowel health problems ?Calcium intake:?takes adequate calcium via diet and supplementation ?Significant PLUMBER GASFITTER problems:?no significant linotypist symptoms or problems * ROS:?general:?no?chest pain.?no?palpitations.?no?headache.?no?cough.?no?shortness of breath.?no?fever.?no?unexplained weight loss.?no?nausea/vomiting.?no?change in bowel movements.?no blood in stool.?no?genitourinary complaints.?no?skin complaints.? * Medical History:? 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 Control:?bilateral tubal ligation.?Menopause: ?Began at age: ?48 ???Colonoscopy?2013-Normal.?Bone Density:?06/02/22, 04/29/20, 08/29/14.? * OB History:?Total pregnancies?3.?Total living children?3.?NVD?3.? * Surgical History:?Bilateral Tubal Ligation Bladder Sling Breast Reduction Cholecystectomy Colonoscopy Left Lumpectomy, Benign [place] Teeth * Hospitalization/Major Diagno stic Procedure:?3 Vaginal Deliveries See Surgical Hx * Family History:?Mother: prince sanchez, well. Breast ca age 78.?Father: 88 yrs, Kidney Failure.? Maternal Grand Aunt: Stomach Cancer Maternal Grandmother's distant cousin: breast ca. * Social History:?Tobacco Use:?Tobacco Use/Smoking?Are you a?former smoker ?How long has it been since you last smoked??> 10 years ?Tobacco use other than smoking?Are you an other tobacco user??No * Medications:?TakingGemtesa 7 5 MG Tablet 1 tablet Orally Once a dayVitamin C 500 MG Capsule as directed Orally Turmeric 500 MG Capsule as directed Orally Claritin 10 MG Tablet 1 tablet Orally Once a dayLevoxyl 50MCG 30 1 ORAL dailyLORazepam 0.5 MG Tablet 1 tablet as needed Orally as neededEscitalopram Oxalate 20 MG Tablet TAKE 1 TABLET BY MOUTH EVERY DAY Oral Fish Oil 1200MG 30 1 ORAL dailySimvastatin 20MG 30 1 ORAL dailyLumigan Cartia XT Capsule Extended Release 24 Hour 1 capsule Orally Once a dayMulti-Vitamin Daily - Tablet 1 tablet Orally Once a dayiron 1 tab Oral Taking Gemtesa 75 MG Tablet 1 tablet Orally Once a dayTaking Vitamin C 500 MG Capsule as directed Orally Taking Turmeric 500 MG Capsule as directed Orally Taking Claritin 10 MG Tablet 1 tablet Orally Once a dayTaking Levoxyl 50MCG 30 1 ORAL dailyTaking LORazepam 0.5 MG Tablet 1 tablet as needed Orally as neededTaking Escitalopram Oxalate 20 MG Tablet TAKE 1 TABLET BY MOUTH EVERY DAY Oral Taking Fish Oil 1200MG 30 1 ORAL dailyTaking Simvastatin 20MG 30 1 ORAL dailyTaking Lumigan Taking Cartia XT Capsule Extended Release 24 Hour 1 capsule Orally Once a dayTaking Multi-Vitamin Daily - Tablet 1 tablet Orally Once a dayTaking iron 1 tab Oral DiscontinuedMyrbetriq 50 MG Tablet Extended Release 24 Hour 1 tablet Orally Once a dayMedication List reviewed and reconciled with the patientDiscontinued Myrbetriq 50 MG Tablet Extended Release 24 Hour 1 tablet Orally Once a dayMedication List reviewed and reconciled with the patient * Allergies:?N.K.D.A.no[Allerg ies Verified] Objective: * Vitals:?Ht: 59 in, Wt:132 lb s, BMI:26.66 Index, BP:150/84 mm Hg, Temp:96.9 F. * Examination: ???General Exam: ?CONSTITUTIONAL:?NECK/THYROID:?RESPIRATORY:?Auscultation: clear to auscultation bilaterally, Respiratory Effort: normal.?CARDIOVASCULAR:?Auscultation: regular rate and rhythm.?BREAST, Right:?BREAST, Left:?GASTROINTESTINAL:?MUSCULOSKELETAL:?SKIN:?NEURO/PSYCH:?Genitourinary: ?EXTERNAL GENITALIA:?VAGINA:?BLADDER:?URETHRA:?CERVIX:?UTERUS:?ADNEXA:?ANUS AND PERINEUM:? Assessment: * Assessment: 1.?Encounter for screening m ammogram for malignant neoplasm of breast - Z12.31?2.?Other specified disorders of bone density and structure, multiple sites - M85.89?3.?Postmenopausal atrophic vaginitis - N95.2?4.?Encounter for gynecological examination (general) (routine) without abnormal findings - Z01.419 (Primary)? Plan: * Treatment: 2.?Encounter for screening m ammogram for malignant neoplasm of breast?Imaging: MM Digital Mammo Screening Notes: REGULAR MAMMOGRAMS AND SBE'S WERE RECOMMENDED.?? 3.?Other specified disorders of bone density and structure, multiple sites?Imaging: BONE DENSITY Notes: DISCUSSED HER LATEST BMD AND OSTEOPENIA AND ITS IMPACT ON HER HEALTH. ADEQUATE CALCIUM AND VIT D. WEIGHT BEARING EXERCISES. REPEAT BMD IN 2023.??4.?Postmenopausal atrophic vaginitis? Notes: DISCUSSED FINDINGS, DX AND TX OPTIONS. PAT IS ASYMPTOMATIC.?? * Imaging:? * ?Imaging: MAMMOGRAM, SCR EENING * Procedure Codes:? * Preventive Medicine:? ??YOUR PREVENTIVE WELLNESS PLAN:?Osteoporosis prevention?Calcium, D, strength training.?Breast Cancer Screening (Mammogram):?annually.?Cervical Cancer Screening (Pap Smear):?q 3 years with HPV screen.?Colorectal Cancer Screening:?q 10 years.? * Follow Up:?2 YEARS OR PRN * Images: Billing Information: * Visit Code:? 73499 Preventive Care Est Pt. Age 65 and over. * Procedure Codes:? * Sign off status: Completed true * Appointment Provider:?Anahy Rahman M.D. Date:?06/29/[address] barroso/Alan/Pedro on:?08/27/2024 03:20 PM EST History and Physical Notes * HPI (History of Present Illness) Category Sub-Category Detail Notes Category Not es New/Follow-up Patient Consult PAT ENTERED MENOPAUSE IN HER 50'S. SHE HAD BEEN FOR MORE THAN 40 YEARS AND HAD ANOTHER PARTNER WHO 12 YEARS AGO. SHE IS NOT SEXUALLY ACTIVE. S/P BILATERAL BREAST REDUCTION. S/P BLADDER SLING SURGERY FOR INCONTINENCE. HER LAST MAMMOGRAM DONE IN MAY 2023 SHOWED BREASTS ARE NOT DENSE AND WAS NORMAL. HER LAST PAP TEST IN 2017 WAS NEGATIVE AND HPV NEGATIVE. HER LAST BMD IN 2021 SHOWED IMPROVEMENT FROM T-SCORE OF -2.3 IN 2019 TO -2.0 AT THE FEMORAL NECK IN 2021. FRAX=15%/4.0%. SHE HAD A COLONOSCOPY DONE IN 2013. MODERNA X 3. Annual General Health Maintenance: Current breast complaints:: no breast pain, mass, discharge, or skin changes Urinary problems:: patient r eports no urinary health problems or bowel health problems Calcium intake:: takes adequ ate calcium via diet and supplementation Significant PLUMBER GASFITTER problems:: n o significant linotypist symptoms or problems Examination Category Sub-Category Detail Notes Category Not es General Exam CONSTITUTIONAL: General Appearan ce:: alert, in no acute distress, normal, well nourished NECK/THYROID: Thyroid:: normal size and shape Inspection/Palpation:: normal RESPIRATORY: Auscultation: clear to auscultation bilaterally, Respiratory Effort: normal CARDIOVASCULAR: Auscultation: regula r rate and rhythm GASTROINTESTINAL: Hernias:: no hernias present, no inguinal adenopathy Liver and Spleen:: normal Abdomen:: no masses, nontender, nondiste nded MUSCULOSKELETAL: Inspection/Palpation:: no clubb ing, cyanosis, or edema SKIN: Skin:: normal NEURO/PSYCH: Mood/Affect:: normal Orientation:: time , place, person BREAST, Right: Inspection/Palpation :: no discharge, no masses present, no nipple retraction, no skin changes, no skin dimpling, no tenderness, no lymphadenopathy, no axillary mass, no axillary tenderness BREAST, Left: Inspection/Palpation :: no discharge, no masses present, no nipple retraction, no skin changes, no skin dimpling, no tenderness, no lymphadenopathy, no axillary mass, no axillary tenderness Genitourinary EXTERNAL GENITALIA: External Genitalia:: nor mal, no lesions VAGINA: Vagina:: atrophic vaginal tissue , minimal moisture BLADDER: Bladder:: no mass, nontender URETHRA: Urethra:: no erythema or lesions present CERVIX: Cervix:: no lesions, nontender UTERUS: Uterus:: nontender, normal conto ur, normal mobility, normal size ADNEXA: Adnexa:: no masses, no tendernes s ANUS AND PERINEUM: Anus/Perineum:: visually norm al
--- OUTSIDE RECORDS SUMMARY | 2024-08-27 15:20 | XMS_ITS | Patient Health Record ---
Author Organization Total 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 Name Role Phone IDANIA CHILDSM Primary Care Provider Unavailab Anahy Zavaleta Unavailable [phone] Allergies No Known Allergies Reason For Referral No Information Medications Medication SIG (Take, Route, Frequency, Duration) Notes Start Date End Date Status Vitamin C 1000 MG 1 tablet Orally Once a day Active Biotin 2500 MCG 1 tablet Orally Twic e a day Active Escitalopram Oxalate 20 MG TAKE 1 TABLET BY MOUTH EVERY DAY Oral for 90 Active Turmeric 500 MG as directed Orally Active Vitamin D3 25 MCG (1000 UT) 1 tablet Ora lly Once a day Active Multi-Vitamin Daily - 1 tablet Orally On ce a day Active Vitamin B12 Active Lumigan Active Atorvastatin Calcium 80 MG 1 tablet Oral ly Once a day Active Aspirin Adult Low Dose 81 MG 1 tablet Orally Once a day Active hydrALAZINE HCl 10 MG TAKE 2 TABLETS BY MOUTH THREE TIMES DAILY WITH FOOD Oral for 90 Days Active Levoxyl 75 MCG 1 tablet in the morn ing on an empty stomach Orally Once a day for -3 days 11/30/2011 Active Gemtesa 75 MG 1 tablet Orally Once a day for 30 day(s) Active dilTIAZem HCl ER 240 MG Oral for 30 Days Active Social History Tobacco Use: Social History Observation Description Date Details (start date - stop date) Former Smoker NA - NA Tobacco use other than smoking: Question Answer Notes Are you an other tobacco user? No AUDIT-C (Standard) Question Answer Notes Did you have a drink contain ing alcohol in the past year? Yes How often did you have six o r more drinks on one occasion in the past year? Never (0 point) How many drinks did you have on a typical day when you were drinking in the past year? 1 or 2 drinks (0 point) How often did you have a dri nk containing alcohol in the past year? Monthly or less (1 point) Points 1 Interpretation Negative Tobacco Control (Standard) Question Answer Notes Tobacco use: Former smoker How long has it been since you last smoked? Grea ter than 10 years Problems Problem Type SNOMED Code ICD Code Onset Dates Problem Status W/U Status Risk Notes Problem Postmenopausal atrophic vaginitis (91655983) Postmenopausal atrophic vaginitis (N95.2) Active confirmed Problem Mastodynia (08077657) Mastodynia (N64.4) Active confirmed Problem Hypothyroidism (90778538) Unspecified hypothyroidism (244.9) Active confirmed Major Problem Hyperlipidemia (06650953) Other and unspecified hyperlipidemia (272.4) Active confirmed Major Problem Obesity (964532283) Obesity, unspecified (278.00) Active confirmed Major Problem Depressive disorder (58989727) Depressive disorder, not elsewhere classified (311) Active confirmed Major Problem Essential hypertension (81957254) Unspecified essential hypertension (401.9) Active confirmed Major Problem Esophageal reflux (064611133) Esophageal reflux (530.81) Active confirmed Major Problem Menopausal symptom (67888498) Symptomatic menopausal or female climacteric states (627.2) Active confirmed Major Vital Signs Temperature 97.9 degrees Fahrenheit 07/08/2024 Blood pressure diastolic 70 mm Hg 07/08/2024 Height 59 in 07/08/2024 Blood pressure systolic 140 mm Hg 07/08/2024 Weight 115 lbs 07/08/2024 BMI 23.22 kg/m2 07/08/2024 Encounters Encounter Location Date Provider Diagnosis Total [facility] [facility] [address] [place] [address] 07/08/2024 Anahy Rahman Encounter for gynecological examination (general) (routine) without abnormal findings Z01.419 ; Encounter for screening mammogram for malignant neoplasm of breast Z12.31 ; Other specified disorders of bone density and structure, multiple sites M85.89 and Postmenopausal atrophic vaginitis N95.2 [facility] [facility] [address] [place] [address] 07/29/2024 Anahy Rahman Disorder of bone density and structure, unspecified M85.9 Assessments Encounter Date Diagnosis (ICD Code) Assessment Notes Treatment Notes Treatment Clinical Notes Section Notes 07/08/2024 Encounter for gynecological examination (general) (routine) without abnormal findings (ICD-10 - Z01.419) NO MORE PAP TESTS. 07/29/2024 Disorder of bone density and structure, unspecified (ICD-10 - M85.9) 07/08/2024 Encounter for screening mammogram for malignant neoplasm of breast (ICD-10 - Z12.31) REGULAR MAMMOGRAMS AND SBE'S WERE RECOMMENDED. 07/08/2024 Other specified disorders of bone density and structure, multiple sites (ICD-10 - M85.89) DISCUSSED HER LAST BMD RESULTS AND OSTEOPENIA AND ITS IMPACT ON HER HEALTH. ADEQUATE CALCIUM AND VIT D. WEIGHT BEARING EXERCISES. REPEAT BMD IN 2023. 07/08/2024 Postmenopausal atrophic vaginitis (ICD-10 - N95.2) DISCUSSED FINDINGS, DX AND TX OPTIONS. PAT IS ASYMPTOMATIC. Plan Of Treatment Pending Test Test Name Order Date MAMMOGRAM, SCREENING 04/13/2021 MAMMOGRAM, SCREENING 04/14/2022 MAMMOGRAM, SCREENING 07/08/2024 MAMMOGRAM, SCREENING 06/29/2023 MAMMOGRAM, SCREENING 08/10/2015 THIN PREP,HPV,ROSANNA IF HPV+ (>29YR)(SCRN) 08/18/2017 BONE DENSITY 04/14/2022 BONE DENSITY 06/29/2023 BONE DENSITY 07/08/2024 MM Digital Mammo Screening 03/30/2023 MM Digital Mammo Screening 06/29/2023 MM Digital Mammo Screening 04/13/2021 MM Digital Mammo Screening 04/14/2022 MM Digital Mammo Screening 07/08/2024 [id number] 07/29/2024 CBC With Differential/Platelet-[id number] PTH, Intact-[id number] 07/29/2024 Vitamin D, 72-[id number] 07/29/2024 Comp. Metabolic Panel [id number] 2023 Next Appt Details Provider Name:Anahy Rogers ayad, 07/10/2025 10:20:00 AM, [address] [facility] [address] [facility], [address], [place], [address], Insurance Providers Payer Name Payer Address Payer Phone Subscriber Number Group Number Insured Name Patient Relationship to Insured Coverage Start Date Coverage End Date MEDICARE [address]NA BARRIOS [id number] [phone] [id number] LESLIE CHAPA Self - patient is the insured [facility] [address] [place] [address] [id number] LESLIE CHAPA Self - patient is the insured Medical (General) History Medical History History ICD Code Acute bronchitis, unspecified J20.9 Cough R05 Hypertrophy of nasal turbinates J34.3 Acute upper respiratory infection, unspe cified J06.9 Other viral agents as the cause of disea ses classified elsewhere B97.89 Allergic rhinitis, unspecified J30.9 Other contact with and (suspected) expos ures hazardous to health Z77.9 Essential (primary) hypertension I10 Menopausal and female climacteric states N95.1 Major depressive disorder, single episod e, unspecified F32.9 Gastro-esophageal reflux disease without esophagitis K21.9 Other hyperlipidemia E78.4 Hypothyroidism, unspecified E03.9 Other obesity E66.8 Postmenopausal atrophic vaginitis N95.2 Myalgia M79.1 Disorder of bone density and structure, unspecified M85.9 Other specified disorders of bone densit y and structure, multiple sites M85.89 Surgical History Surgery Date(Month/Year) Bilateral Tubal Ligation Bladder Sling Breast Reduction Cholecystectomy Colonoscopy Left Lumpectomy, Benign [place] Teeth Hospitalization History Reason Date(Month/Year) See Surgical Hx 3 Vaginal Deliveries
--- OUTSIDE RECORDS SUMMARY | 2024-08-27 15:20 | XMS_ITS ---
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+ Medications Medication SIG (Take, Route, Frequency, Duration) Notes Start Date End Date Status Escitalopram Oxalate 20 MG TAKE 1 TABLET BY MOUTH EVERY DAY Oral for 90 Active Turmeric 500 MG as directed Orally Active Multi-Vitamin Daily - 1 tablet Orally On ce a day Active Lumigan Active Vitamin C 1000 MG 1 tablet Orally [...] 240 MG Oral for 30 Days Active Biotin 2500 MCG 1 tablet Orally Twic e a day Active Vitamin D3 25 MCG (1000 UT) 1 tablet Ora lly Once a day Active Vitamin B12 Active Atorvastatin Calcium 80 MG 1 tablet Oral ly Once a day Active Aspirin Adult Low Dose 81 MG 1 tablet Orally Once a day Active Social History Tobacco Use: Social History [...] has it been since you last smoked? Zeeshan ter than 10 years Vital Signs Temperature 97.9 degrees Fahrenheit 07/08/20 24 Blood pressure systolic 140 mm Hg 07/08/20 24 Blood pressure diastolic 70 mm Hg 024 Height 59 in 07/08/2024 Weight 115 lbs 07/08/2024 BMI 23.22 kg/m2 07/08/2024 Encounters Encounter Location Date Provider Diagnosis [address] [place] [address] 07/08/2024 Anahy Rahman Encounter for gynecological examination (general) (routine) without abnormal findings Z01.419 ; Encounter for screening mammogram for malignant neoplasm of breast Z12.31 ; Other specified disorders of bone density and structure, multiple sites M85.89 and Postmenopausal atrophic vaginitis N95.2 Assessments Encounter Date Diagnosis (ICD Code) Assessment Notes Treatment Notes Treatment Clinical Notes Section Notes 07/08/2024 Encounter for gynecological examination (general) (routine) without abnormal findings (ICD-10 - Z01.419) NO MORE PAP TESTS. 07/08/2024 Encounter for screening mammogram for malignant [...] OPTIONS. PAT IS ASYMPTOMATIC. Plan Of Treatment Treatment Notes Assessment Notes Encounter for gynecological examination (general) (routine) without abnormal findings NO MORE PAP TESTS. Encounter for screening mamm ogram for malignant neoplasm of breast REGULAR MAMMOGRAMS AND SBE'S WERE RECOMMENDED. Other specified disorders of bone density and structure, multiple sites DISCUSSED HER LAST BMD RESULTS AND OSTEOPENIA AND ITS IMPACT ON HER HEALTH. ADEQUATE CALCIUM AND VIT D. WEIGHT BEARING EXERCISES. REPEAT BMD IN 2023. Postmenopausal atrophic vaginitis DISCUSSED FINDINGS, DX AND TX OPTIONS. PAT IS ASYMPTOMATIC. Pending Test Test Name Order Date MAMMOGRAM, SCREENING 07/08/2024 BONE DENSITY 07/08/2024 MM Digital Mammo Screening 07/08/2024 Next Appt Details Follow Up: 1 Year, Reason: Provider Name:Anahy lion, 07/10/2025 10:20:00 AM, [address] [facility], [address], [place], [address], Progress Notes * LESLIE CHAPADOB:1945 (78 yo F)Acc No.[id number]:07/08/2024 PROGRESS NOTES Patient:?LESLIE CHAPA Appointment Provider:?Anahy lion M.D. 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 PAT ENTERED MENOPAUSE IN HER 50'S.? SHE IS NOT SEXUALLY ACTIVE. SHE HAS UNDERGONE BLADDER SLING SURGERY FOR URINARY INCONTINENCE WITH GOOD RESULTS.? SHE HAS ALSO UNDERGONE BILATERAL BREAST REDUCTION. HER LAST MAMMOGRAM DONE IN MAY 2023 SHOWED BREASTS ARE NOT DENSE AND WAS NORMAL.? SHE HAS A MAMMOGRAM APPT THIS JUN 2024. HER LAST PAP TEST IN 2017 WAS NEGATIVE AND HPV NEGATIVE. HER LAST BMD IN 2021 SHOWED THE LOWEST T-SCORE TO BE -2.0 AT THE FEMORAL NECK.? FRAX=15%/4.0%. SHE HAD A COLONOSCOPY DONE IN 2013 AND WAS TOLD SHE NO LONGER NEEDED MORE COLONOSCOPIES. MODERNA X 3. ???Annual:? Patient presents for annual exam, ages 60-85, postmenopausal. 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 * Medical History:? * Improvement Analyst History:?/ Para?33.?Sexual activity?not currently sexually active.?Last Pap Smear:?08/18/17 NIL, NEG HRHPV, 06/25/13, neg.?Mammogram:?06/06/23 Breast Tissue is Almost Entirely Fatty, 06/02/22 Breast Tissue is Almost Entirely Fatty, 06/01/21 < 50% density, 04/02/20 < 50% density, 12/11/18 Breast Tissue is Almost Entirely Fatty, 12/08/17 Breast Tissue is Almost Entirely Fatty, 11/28/2016 normal, 09/03/2015 Breast Tissue is Almost Entirely Fatty, normal, 08/29/14, < 25% glandular.?Abnormal Pap Smear:?no history of abnormal pap smears.?LMP and menses?Nazanin.? Control:?bilateral tubal ligation.?Menopause: ?Began at age: ?48 ???Colonoscopy?2013-Normal.?Bone Density:?06/02/22, 04/29/20, 08/29/14.? * OB History:?Total pregnancies?3.?Total living children?3.?NVD?3.? * Surgical History:?Bilateral Tubal Ligation Bladder Sling Breast Reduction Cholecystectomy Colonoscopy Left Lumpectomy, Benign [place] Teeth * Hospitalization/Major Diagno stic Procedure:?3 Vaginal Deliveries See Surgical Hx * Family History:?Mother: prince sanchez, well. Breast ca age 78.?Father: 88 yrs, Kidney Failure.? Maternal Grand Aunt: Stomach Cancer Maternal Grandmother's distant cousin: breast ca. * Social History:?Tobacco Use:?Tobacco use other than smoking?Are you an other tobacco user??No ?Tobacco Control (Standard)?Tobacco use:?Former smoker ?How long has it been since you last smoked??Greater than 10 years ???Sexual History:?Sexual History?Had sex in the past 12 months (vaginal, oral, or anal)?: No.?Details of Sexual History?Are you sexually active??No ???Drugs/Alcohol:?Drugs?Have you used drugs other than those for medical reasons in the past 12 months??No ???Miscellaneous:?Children: yes, 3. ?Domestic violence: no. ?Exercise: no. ?Home smoke detector use: yes. ?Marital status: . ?Natural support system: yes. ?Occupation: Works full-time. ?Sexual abuse: no. ?Sexually active: no. ?Verbal abuse: no. ???Drug/Alcohol:?AUDIT-C (Standard)?Did you have a drink containing alcohol in the past year??Yes ?How often did you have six or more drinks on one occasion in the past year??Never (0 point) ?How many drinks did you have on a typical day when you were drinking in the past year??1 or 2 drinks (0 point) ?How often did you have a drink containing alcohol in the past year??Monthly or less (1 point) ?Points?1 ?Interpretation?Negative * Medications:?TakingBiotin 25 00 MCG Tablet Chewable 1 tablet Orally Twice a day Vitamin B12 Vitamin D3 25 MCG (1000 UT) Tablet 1 tablet Orally Once a day Aspirin Adult Low Dose 81 MG Tablet Delayed Release 1 tablet Orally Once a day Atorvastatin Calcium 80 MG Tablet 1 tablet Orally Once a day Levoxyl 75 MCG Tablet 1 tablet in the morning on an empty stomach Orally Once a day hydrALAZINE HCl 10 MG Tablet TAKE 2 TABLETS BY MOUTH THREE TIMES DAILY WITH FOOD Oral dilTIAZem HCl ER 240 MG Tablet Extended Release 24 Hour Oral Gemtesa 75 MG Tablet 1 tablet Orally Once a day Vitamin C 1000 MG Tablet 1 tablet Orally Once a day Turmeric 500 MG Capsule as directed Orally Escitalopram Oxalate 20 MG Tablet TAKE 1 TABLET BY MOUTH EVERY DAY Oral Lumigan Multi-Vitamin Daily - Tablet 1 tablet Orally Once a day Taking Biotin 2500 MCG Tablet Chewable 1 tablet Orally Twice a day Taking Vitamin B12 Taking Vitamin D3 25 MCG (1000 UT) Tablet 1 tablet Orally Once a day Taking Aspirin Adult Low Dose 81 MG Tablet Delayed Release 1 tablet Orally Once a day Taking Atorvastatin Calcium 80 MG Tablet 1 tablet Orally Once a day Taking Levoxyl 75 MCG Tablet 1 tablet in the morning on an empty stomach Orally Once a day Taking hydrALAZINE HCl 10 MG Tablet TAKE 2 TABLETS BY MOUTH THREE TIMES DAILY WITH FOOD Oral Taking dilTIAZem HCl ER 240 MG Tablet Extended Release 24 Hour Oral Taking Gemtesa 75 MG Tablet 1 tablet Orally Once a day Taking Vitamin C 1000 MG Tablet 1 tablet Orally Once a day Taking Turmeric 500 MG Capsule as directed Orally Taking Escitalopram Oxalate 20 MG Tablet TAKE 1 TABLET BY MOUTH EVERY DAY Oral Taking Lumigan Taking Multi-Vitamin Daily - Tablet 1 tablet Orally Once a day DiscontinuedClaritin 10 MG Tablet 1 tablet Orally Once a day LORazepam 0.5 MG Tablet 1 tablet as needed Orally as needed Fish Oil 1200MG 30 1 ORAL daily Cartia XT Capsule Extended Release 24 Hour 1 capsule Orally Once a day iron 1 tab Oral Simvastatin 20MG 30 1 ORAL daily Medication List reviewed and reconciled with the patientDiscontinued Claritin 10 MG Tablet 1 tablet Orally Once a day Discontinued LORazepam 0.5 MG Tablet 1 tablet as needed Orally as needed Discontinued Fish Oil 1200MG 30 1 ORAL daily Discontinued Cartia XT Capsule Extended Release 24 Hour 1 capsule Orally Once a day Discontinued iron 1 tab Oral Discontinued Simvastatin 20MG 30 1 ORAL daily Medication List reviewed and reconciled with the patient * Allergies:?N.K.D.A.no[Allerg ies Verified] Objective: * Vitals:?Ht: 59 in, Wt: 115 l bs, BMI:23.22Index, BP: 140/70 mm Hg, Temp: 97.9 F. * Examination: ???General Exam: ?CONSTITUTIONAL:?NECK/THYROID:?RESPIRATORY:?Auscultation: clear to auscultation bilaterally, Respiratory Effort: normal.?CARDIOVASCULAR:?Auscultation: regular rate and rhythm.?BREAST, Right:?BREAST, Left:?GASTROINTESTINAL:?MUSCULOSKELETAL:?SKIN:?NEURO/PSYCH:?Genitourinary: ?EXTERNAL GENITALIA:?VAGINA:?BLADDER:?URETHRA:?CERVIX:?UTERUS:?ADNEXA:?ANUS AND PERINEUM:? Assessment: * Assessment: 1.?Encounter for gynecologic al examination (general) (routine) without abnormal findings - Z01.419???2.?Encounter for screening mammogram for malignant neoplasm of breast - Z12.31???3.?Other specified disorders of bone density and structure, multiple sites - M85.89???4.?Postmenopausal atrophic vaginitis - N95.2??? Plan: * Treatment: 2.?Encounter for screening m ammogram for malignant neoplasm of breast?Imaging: MM Digital Mammo Screening Notes: REGULAR MAMMOGRAMS AND SBE'S WERE RECOMMENDED.?? 3.?Other specified disorders of bone density and structure, multiple sites?Imaging: BONE DENSITY Notes: DISCUSSED HER LAST BMD RESULTS AND OSTEOPENIA [...] screen.?Colorectal Cancer Screening:?q 10 years.? * Follow Up:?1 Year * Images: Billing Information: * Visit Code:? 18483 Preventive Care Est Pt. Age 65 and over. * Procedure Codes:? * Sign off status: Completed true * Appointment Provider:?Anahy Rahman M.D. Date:?07/08/[address] barroso/Alan/Faridaitting on:?08/27/2024 03:20 PM EST History and Physical Notes * HPI (History of Present Illness) Category Sub-Category Detail Notes Category Not es New/Follow-up Patient Consult PAT ENTERED MENOPAUSE IN HER 50'S. SHE IS NOT SEXUALLY ACTIVE. SHE HAS UNDERGONE BLADDER SLING SURGERY FOR URINARY INCONTINENCE WITH GOOD RESULTS. SHE HAS ALSO UNDERGONE BILATERAL BREAST REDUCTION. HER LAST MAMMOGRAM DONE IN MAY 2023 SHOWED BREASTS ARE NOT DENSE AND WAS NORMAL. SHE HAS A MAMMOGRAM APPT THIS JUN 2024. HER LAST PAP TEST IN 2017 WAS NEGATIVE AND HPV NEGATIVE. HER LAST BMD IN 2021 SHOWED THE LOWEST T-SCORE TO BE -2.0 AT THE FEMORAL NECK. FRAX=15%/4.0%. SHE HAD A COLONOSCOPY DONE IN 2013 AND WAS TOLD SHE NO LONGER NEEDED MORE COLONOSCOPIES. MODERNA X 3. 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
== END 2024-08-27 14:56 | disposition home or self-care (01) ==
PROVIDERS: PCP Family Medicine
DX: I25.10 Atherosclerotic heart disease of native coronary artery without angina pectoris (principal); I44.7 Left bundle-branch block, unspecified; R00.1 Bradycardia, unspecified; I10 Essential (primary) hypertension; Z09 Encounter for follow-up examination after completed treatment for conditions other than malignant neoplasm
CPT/HCPCS: 99214

== ENCOUNTER → 2024-08-27 14:26 | Outpatient (BNVA) | payer MEDICARE, OTHER, SELFPAY | PROVIDERS: PCP Family Medicine | DX: I10 Essential (primary) hypertension (principal); I25.10 Atherosclerotic heart disease of native coronary artery without angina pectoris; I44.7 Left bundle-branch block, unspecified; E78.5 Hyperlipidemia, unspecified; R00.1 Bradycardia, unspecified; Z09 Encounter for follow-up examination after completed treatment for conditions other than malignant neoplasm | CPT/HCPCS: 99212 ==

== ENCOUNTER → 2024-09-03 11:21 | Outpatient (BNV) | payer MEDICARE, OTHER, SELFPAY | PROVIDERS: PCP Family Medicine; Visit Provider Internal Medicine | DX: R00.0 Tachycardia, unspecified (principal) | CPT/HCPCS: 93244 ==

== ENCOUNTER → 2025-05-15 23:59 | Outpatient (BNV) | payer MEDICARE, OTHER, SELFPAY | PROVIDERS: PCP Family Medicine; Visit Provider Internal Medicine Cardiovascular Disease | DX: I20.0 Unstable angina (principal) | CPT/HCPCS: 93458; 93571; 99152 ==